=== PATIENT | male | born 1930 | race Hispanic/Latino ===

== ENCOUNTER 2020-10-29 15:13 | Inpatient (IN) | payer MEDICARE ==
[~2020-10-29] VITALS: Ht 182.9 cm; Wt 95.3 kg
[2020-10-29] MEDS ORDERED: CEFTRIAXONE 1G VIAL ONE (16:16)
[2020-10-29] MEDS ORDERED: DEXAMETHASONE SOD PHOSPHATE 10MG/ML 1ML VIAL ONE (16:16)
[2020-10-29] MEDS ORDERED: ALBUTEROL INHALER 90MCG/INH IH ONE (16:16)
[2020-10-29] MEDS ORDERED: 0.9%NACL 50ML 50 ML IV ONE (16:17)
[2020-10-29 16:28] LABS: BASOPHILS % (AUTO) 0.3 % (0.0-5.0); HEMATOCRIT 36.1 % (42-54); LYMPHOCYTES % (AUTO) 10.9 % (21.0-51.0); MEAN CORPUSCULAR HEMOGLOBIN 29.4 pg (27.0-33.0); MEAN CORPUSCULAR HGB CONC 32.7 g/dL (32.0-36.0); MEAN CORPUSCULAR VOLUME 89.8 fL (79-99); MONOCYTES % (AUTO) 7.6 % (3.0-13.0); NEUTROPHILS % (AUTO) 80.7 % (40.0-77.0); PLATELET COUNT (AUTO) 179 K/uL (130-400); RED BLOOD CELL COUNT(AUTO) 4.02 MIL/uL (4.50-6.20); RED CELL DISTRIBUTION WIDTH 13.7 % (11.0-15.5); WHITE BLOOD COUNT (AUTO) 7.5 K/uL (4.8-10.8)
[2020-10-29 16:40] LABS: ABG BASE EXCESS -4.6 mmol/L (-2.0-3.0); ABG HCO3 18.3 mmol/L (21.0-28.0); ABG OXYGEN SATURATION 84.4 % (95.0-99.0); ABG PCO2 28 mmHg (35-48)
[2020-10-29 16:46] LABS: APPEARANCE,URINE Cloudy (CLEAR); BILIRUBIN,URINE Negative (NEGATIVE); COLOR,URINE Dark Yellow (YELLOW); GLUCOSE, URINE (UA) Negative (NEGATIVE); KETONES,URINE 15 mg/dL (NEGATIVE); LEUKOCYTE ESTERASE ,URINE Trace (NEGATIVE); NITRATE,URINE Negative (NEGATIVE); OCCULT BLOOD,URINE Trace (NEGATIVE); PROTEIN,URINE POS 2+ mg/dL (NEGATIVE)
[2020-10-29 16:58] LABS: B-TYPE NATRIURETIC PEPTIDE 358 pg/mL (0-100)
[2020-10-29 17:18] LABS: CREATININE 1.3 mg/dL (0.5-1.5); POTASSIUM 4.1 mmol/L (3.5-5.1)
[2020-10-29 17:23] LABS: ALBUMIN 3.2 g/dL (3.5-5.0); BILIRUBIN,TOTAL 0.6 mg/dL (0.2-1.0); TOTAL PROTEIN, SERUM 7.9 g/dL (6.0-8.3)
[2020-10-29 17:26] LABS: RBC,URINE None Seen /HPF (0-1)
[2020-10-29 17:27] LABS: BACTERIA,URINE Few /HPF (None Seen); COARSE GRANULAR CASTS,URINE 0-2 /LPF (None Seen); SQUAMOUS EPITHELIAL CELL,UR 0-2 /HPF (0-2); WBC,URINE 0-1 /HPF (0-1)
[2020-10-29] MEDS ORDERED: AZITHROMYCIN 500MG+NS 250ML 250 ML IV ONE (18:13)
[2020-10-29] MEDS ORDERED: ONDANSETRON 4MG INJ IV PRN (18:30)
[2020-10-29] MEDS ORDERED: DOXYCYCLINE 100MG+NS 250ML IV SCH (18:30)
[2020-10-29] MEDS ORDERED: GUAIFENESIN-DM 200/20 MG 10 ML PO PRN (18:30)
[2020-10-29] MEDS: DEXAMETHASONE SOD PHOSPHATE 4 MG/ML 1ML VIAL IVP SCH (18:30)
[2020-10-29] MEDS ORDERED: ACETAMINOPHEN 325 MG TAB PO PRN ×2 (18:30)
[2020-10-29] MEDS ORDERED: ERGOCALCIFEROL (VITAMIN D2) 50,000 UNIT CAPSULE PO ONE (18:30)
[2020-10-29] MEDS: CEFTRIAXONE 1G VIAL IVP SCH (18:30)
[2020-10-29] MEDS ORDERED: PHARMACY COMMUNICATION MISC SCH (19:30)
[2020-10-29] MEDS: ACETYLCYSTEINE 600 MG CAPSULE PO SCH (21:00)
[2020-10-29] MEDS: DOXYCYCLINE 100MG+NS 250ML 250 ML IV SCH (21:00)
[2020-10-29] MEDS ORDERED: ACETYLCYSTEINE 600 MG CAPSULE ONE (21:53)
[2020-10-29] MEDS ORDERED: DOXYCYCLINE 100MG+NS 250ML 250 ML IV ONE (21:53)
[2020-10-29] MEDS ORDERED: ERGOCALCIFEROL (VITAMIN D2) 50,000 UNIT CAPSULE ONE (21:53)
[2020-10-30] MEDS ORDERED: GUAIFENESIN-DM 200/20 MG 10 ML ONE (04:33)
[2020-10-30] MEDS ORDERED: CEFTRIAXONE 1G VIAL ONE (04:45)
[2020-10-30 05:18] LABS: HEMATOCRIT 32.8 % (42-54); LYMPHOCYTES % (AUTO) 7.6 % (21.0-51.0); MEAN CORPUSCULAR HEMOGLOBIN 29.8 pg (27.0-33.0); MEAN CORPUSCULAR HGB CONC 33.8 g/dL (32.0-36.0); MEAN CORPUSCULAR VOLUME 88.2 fL (79-99); MONOCYTES % (AUTO) 2.4 % (3.0-13.0); NEUTROPHILS % (AUTO) 89.3 % (40.0-77.0); PLATELET COUNT (AUTO) 196 K/uL (130-400); RED BLOOD CELL COUNT(AUTO) 3.72 MIL/uL (4.50-6.20); RED CELL DISTRIBUTION WIDTH 13.6 % (11.0-15.5); WHITE BLOOD COUNT (AUTO) 5.4 K/uL (4.8-10.8)
[2020-10-30 05:59] LABS: ALBUMIN 2.7 g/dL (3.5-5.0); BILIRUBIN,TOTAL 0.4 mg/dL (0.2-1.0); CREATININE 1.1 mg/dL (0.5-1.5); TOTAL PROTEIN, SERUM 7.1 g/dL (6.0-8.3)
[2020-10-30 06:09] LABS: POTASSIUM 3.9 mmol/L (3.5-5.1)
[2020-10-30] MEDS: CEFTRIAXONE 1G VIAL IVP SCH ×2 (06:30→18:43)
[2020-10-30] MEDS ORDERED: ASCORBIC ACID 500 MG TAB ONE (08:22)
[2020-10-30] MEDS ORDERED: FAMOTIDINE 20MG VIAL IV ONE (08:23)
[2020-10-30] MEDS ORDERED: ACETYLCYSTEINE 600 MG CAPSULE ONE (08:23)
[2020-10-30] MEDS ORDERED: ENOXAPARIN SODIUM 30 MG/0.3 ML SQ ONE (08:23)
[2020-10-30] MEDS ORDERED: DOXYCYCLINE 100MG+NS 250ML 250 ML IV ONE (08:23)
[2020-10-30] MEDS ORDERED: ZINC SULFATE 220 CAPSULE ONE (08:23)
[2020-10-30] MEDS: ASCORBIC ACID 500 MG TAB PO SCH (09:00)
[2020-10-30] MEDS ORDERED: ENOXAPARIN SODIUM 30 MG/0.3 ML SQ SCH ×2 (09:00→10:15)
[2020-10-30] MEDS: ACETYLCYSTEINE 600 MG CAPSULE PO SCH ×2 (09:00→20:16)
[2020-10-30] MEDS ORDERED: FAMOTIDINE 20MG VIAL IV SCH (09:00)
[2020-10-30] MEDS: DOXYCYCLINE 100MG+NS 250ML 250 ML IV SCH ×2 (09:00→20:51)
[2020-10-30] MEDS: ZINC SULFATE 220 CAPSULE PO SCH (09:00)
[2020-10-30] MEDS ORDERED: PHARMACY COMMUNICATION MISC SCH (10:15)
[2020-10-30] MEDS ORDERED: FINA5TAB41 PO (10:54)
[2020-10-30] MEDS ORDERED: BRIN8DRO OP (10:54)
[2020-10-30] MEDS ORDERED: TIMO1DRO2 OP (10:54)
[2020-10-30] MEDS ORDERED: SIMV-46 PO (10:54)
[2020-10-30] MEDS ORDERED: LATA7.5D OP (10:54)
[2020-10-30] MEDS ORDERED: CYCL30DR OP (10:54)
[2020-10-30] MEDS ORDERED: TAMS-1 PO (10:54)
[2020-10-30] MEDS ORDERED: CALC60CR5 TP (10:54)
[2020-10-30] MEDS ORDERED: REMDESIVIR (EUA) 520 200 MG in 0.9% NACL 250ML 250 ML IV ONE (14:00)
[2020-10-30] MEDS ORDERED: COMPOUND IV REFRIGERATED 1 EACH IVSOLN MISC PRN (14:00)
[2020-10-30] MEDS ORDERED: POTASSIUM CHLORIDE 20MEQ/100ML 100 ML IV PRN (15:00)
[2020-10-30] MEDS ORDERED: POTASSIUM CHLORIDE 10% ELIXIR 20 MEQ/15 ML UDCUP PO PRN (15:00)
[2020-10-30] MEDS ORDERED: LIDOCAINE HCL-MPF 1% 2ML VIAL IV PRN (15:00)
[2020-10-30] MEDS ORDERED: PROMETHAZINE HCL 25 MG/ML 1ML AMPULE IM PRN (15:30)
[2020-10-30] MEDS ORDERED: KETOROLAC 30MG VIAL (30MG/ML) IVP PRN (15:30)
[2020-10-30] MEDS ORDERED: FENTANYL CITRATE PF 50 MCG/1 ML 2ML VIAL IVP PRN (15:30)
[2020-10-30] MEDS ORDERED: METOCLOPRAMIDE 10 MG/2 ML VIAL IVP PRN (15:30)
[2020-10-30] MEDS ORDERED: NITROGLYCERIN 50MG/D5W 250ML 1 BOT IV PRN (15:30)
[2020-10-30] MEDS ORDERED: NALOXONE HCL 0.4 MG/1 ML ML IVP PRN (15:30)
[2020-10-30] MEDS ORDERED: MORPHINE 5 MG/ML VIAL (5MG OR GREATER DOSE) IVP PRN (15:30)
[2020-10-30] MEDS ORDERED: ONDANSETRON 4MG INJ IVP PRN (15:30)
[2020-10-30 17:58] VITALS: BP 132/92
[2020-10-30] MEDS: DEXAMETHASONE SOD PHOSPHATE 4 MG/ML 1ML VIAL IVP SCH (18:42)
[2020-10-30 19:58] VITALS: BP 170/85
[2020-10-30 20:10] VITALS: BP 146/69
[2020-10-30] MEDS: ENOXAPARIN SODIUM 80 MG/0.8 ML SQ SCH (20:16)
[2020-10-30] MEDS: FAMOTIDINE 20MG VIAL IV SCH ×2 (20:16→20:22)
[2020-10-30] MEDS ORDERED: 0.9% NACL 250ML 250 ML IV ONE (20:46)
[2020-10-30 23:51] VITALS: BP 114/52
[2020-10-31] VITALS (7 sets, daily range): BP systolic 106–140; BP diastolic 41–83
[2020-10-31 03:28] LABS: ABG BASE EXCESS -5.4 mmol/L (-2.0-3.0); ABG HCO3 18.5 mmol/L (21.0-28.0); ABG OXYGEN SATURATION 87.5 % (95.0-99.0); ABG PCO2 31 mmHg (35-48)
[2020-10-31] MEDS: PHARMACY COMMUNICATION MISC SCH (06:00)
[2020-10-31] MEDS: CEFTRIAXONE 1G VIAL IVP SCH ×2 (06:01→18:02)
[2020-10-31 06:42] LABS: BASOPHILS % (AUTO) 0.1 % (0.0-5.0); LYMPHOCYTES % (AUTO) 2.4 % (21.0-51.0); MEAN CORPUSCULAR HEMOGLOBIN 29.2 pg (27.0-33.0); MEAN CORPUSCULAR HGB CONC 33.3 g/dL (32.0-36.0); MEAN CORPUSCULAR VOLUME 87.7 fL (79-99); NEUTROPHILS % (AUTO) 92.3 % (40.0-77.0); PLATELET COUNT (AUTO) 237 K/uL (130-400); RED BLOOD CELL COUNT(AUTO) 3.42 MIL/uL (4.50-6.20); RED CELL DISTRIBUTION WIDTH 13.8 % (11.0-15.5); WHITE BLOOD COUNT (AUTO) 14.7 K/uL (4.8-10.8)
[2020-10-31 07:26] LABS: ALBUMIN 2.4 g/dL (3.5-5.0); BILIRUBIN,TOTAL 0.3 mg/dL (0.2-1.0); POTASSIUM 3.9 mmol/L (3.5-5.1); TOTAL PROTEIN, SERUM 6.4 g/dL (6.0-8.3)
[2020-10-31 07:39] LABS: CRP QUANTITATIVE 250.4 mg/L (0.00-9.0)
[2020-10-31] MEDS: FAMOTIDINE 20MG VIAL IV SCH ×2 (09:16→20:34)
[2020-10-31] MEDS: ASCORBIC ACID 500 MG TAB PO SCH (09:16)
[2020-10-31] MEDS: ACETYLCYSTEINE 600 MG CAPSULE PO SCH ×2 (09:16→20:34)
[2020-10-31] MEDS: ZINC SULFATE 220 CAPSULE PO SCH (09:16)
[2020-10-31] MEDS: ENOXAPARIN SODIUM 80 MG/0.8 ML SQ SCH ×2 (09:17→20:35)
[2020-10-31] MEDS: DOXYCYCLINE 100MG+NS 250ML 250 ML IV SCH ×2 (10:27→20:35)
[2020-10-31] MEDS: REMDESIVIR (EUA) 520 100 MG in 0.9% NACL 250ML 250 ML IV SCH (14:43)
[2020-10-31] MEDS: DEXAMETHASONE SOD PHOSPHATE 4 MG/ML 1ML VIAL IVP SCH (18:02)
[2020-11-01 04:03] VITALS: BP 110/60
[2020-11-01] MEDS: CEFTRIAXONE 1G VIAL IVP SCH ×2 (05:24→18:29)
[2020-11-01] MEDS: PHARMACY COMMUNICATION MISC SCH (06:00)
[2020-11-01 06:25] LABS: BASOPHILS % (AUTO) 0.2 % (0.0-5.0); LYMPHOCYTES % (AUTO) 2.2 % (21.0-51.0); MEAN CORPUSCULAR HEMOGLOBIN 29.5 pg (27.0-33.0); MEAN CORPUSCULAR HGB CONC 33.3 g/dL (32.0-36.0); MEAN CORPUSCULAR VOLUME 88.5 fL (79-99); MONOCYTES % (AUTO) 3.5 % (3.0-13.0); PLATELET COUNT (AUTO) 291 K/uL (130-400); RED BLOOD CELL COUNT(AUTO) 3.73 MIL/uL (4.50-6.20); RED CELL DISTRIBUTION WIDTH 14.1 % (11.0-15.5); WHITE BLOOD COUNT (AUTO) 14.3 K/uL (4.8-10.8)
[2020-11-01 06:34] LABS: ALBUMIN 2.5 g/dL (3.5-5.0); BILIRUBIN,TOTAL 0.5 mg/dL (0.2-1.0); CREATININE 1.1 mg/dL (0.5-1.5); CRP QUANTITATIVE 260.7 mg/L (0.00-9.0); POTASSIUM 4.3 mmol/L (3.5-5.1); TOTAL PROTEIN, SERUM 6.6 g/dL (6.0-8.3)
[2020-11-01 07:31] VITALS: BP 132/71
[2020-11-01] MEDS: FAMOTIDINE 20MG VIAL IV SCH ×2 (08:50→20:27)
[2020-11-01] MEDS: ZINC SULFATE 220 CAPSULE PO SCH (08:50)
[2020-11-01] MEDS: ACETYLCYSTEINE 600 MG CAPSULE PO SCH ×2 (08:51→20:25)
[2020-11-01] MEDS: ASCORBIC ACID 500 MG TAB PO SCH (08:51)
[2020-11-01] MEDS: DOXYCYCLINE 100MG+NS 250ML 250 ML IV SCH ×2 (08:51→20:25)
[2020-11-01] MEDS: ENOXAPARIN SODIUM 80 MG/0.8 ML SQ SCH ×2 (08:52→20:26)
[2020-11-01 10:31] VITALS: BP 131/75
[2020-11-01] MEDS ORDERED: ALBUTEROL INHALER 90MCG/INH IH PRN (11:15)
[2020-11-01 15:49] VITALS: BP 135/77
[2020-11-01] MEDS: REMDESIVIR (EUA) 520 100 MG in 0.9% NACL 250ML 250 ML IV SCH (16:51)
[2020-11-01] MEDS: DEXAMETHASONE SOD PHOSPHATE 4 MG/ML 1ML VIAL IVP SCH (18:29)
[2020-11-01 20:00] VITALS: BP 136/73
[2020-11-02] VITALS (7 sets, daily range): BP systolic 138–168; BP diastolic 58–97
[2020-11-02 05:40] LABS: BASOPHILS % (AUTO) 0.1 % (0.0-5.0); HEMATOCRIT 30.4 % (42-54); LYMPHOCYTES % (AUTO) 2.2 % (21.0-51.0); MEAN CORPUSCULAR HEMOGLOBIN 29.2 pg (27.0-33.0); MEAN CORPUSCULAR HGB CONC 32.9 g/dL (32.0-36.0); MEAN CORPUSCULAR VOLUME 88.9 fL (79-99); MONOCYTES % (AUTO) 3.2 % (3.0-13.0); PLATELET COUNT (AUTO) 265 K/uL (130-400); RED BLOOD CELL COUNT(AUTO) 3.42 MIL/uL (4.50-6.20); RED CELL DISTRIBUTION WIDTH 14.5 % (11.0-15.5); WHITE BLOOD COUNT (AUTO) 13.3 K/uL (4.8-10.8)
[2020-11-02 06:06] LABS: CRP QUANTITATIVE 167.8 mg/L (0.00-9.0); POTASSIUM 3.9 mmol/L (3.5-5.1)
[2020-11-02] MEDS: CEFTRIAXONE 1G VIAL IVP SCH ×2 (06:30→06:34)
[2020-11-02] MEDS: FAMOTIDINE 20MG VIAL IV SCH (08:08)
[2020-11-02] MEDS: ASCORBIC ACID 500 MG TAB PO SCH (08:08)
[2020-11-02] MEDS: ZINC SULFATE 220 CAPSULE PO SCH (08:08)
[2020-11-02] MEDS: ENOXAPARIN SODIUM 80 MG/0.8 ML SQ SCH (08:09)
[2020-11-02] MEDS: ACETYLCYSTEINE 600 MG CAPSULE PO SCH (08:34)
[2020-11-02] MEDS: DOXYCYCLINE 100MG+NS 250ML 250 ML IV SCH (08:34)
[2020-11-02 13:28] LABS: ALBUMIN 2.4 g/dL (3.5-5.0); BILIRUBIN,DIRECT 0.1 mg/dL (0.0-0.3); BILIRUBIN,TOTAL 0.4 mg/dL (0.2-1.0); TOTAL PROTEIN, SERUM 5.9 g/dL (6.0-8.3)
[2020-11-02] MEDS: REMDESIVIR (EUA) 520 100 MG in 0.9% NACL 250ML 250 ML IV SCH (15:05)
[2020-11-02] MEDS: DEXAMETHASONE SOD PHOSPHATE 4 MG/ML 1ML VIAL IVP SCH (18:49)
[2020-11-03 03:29] VITALS: BP 133/77
[2020-11-03 05:08] LABS: BASOPHILS % (AUTO) 0.2 % (0.0-5.0); HEMATOCRIT 31.9 % (42-54); LYMPHOCYTES % (AUTO) 2.6 % (21.0-51.0); MEAN CORPUSCULAR HEMOGLOBIN 29.4 pg (27.0-33.0); MEAN CORPUSCULAR HGB CONC 33.9 g/dL (32.0-36.0); MEAN CORPUSCULAR VOLUME 86.9 fL (79-99); MONOCYTES % (AUTO) 2.7 % (3.0-13.0); NEUTROPHILS % (AUTO) 93.4 % (40.0-77.0); PLATELET COUNT (AUTO) 301 K/uL (130-400); RED BLOOD CELL COUNT(AUTO) 3.67 MIL/uL (4.50-6.20); RED CELL DISTRIBUTION WIDTH 14.4 % (11.0-15.5)
[2020-11-03 05:21] LABS: CREATININE 0.9 mg/dL (0.5-1.5); MAGNESIUM 2.2 mg/dL (1.80-2.40); POTASSIUM 3.6 mmol/L (3.5-5.1)
[2020-11-03 08:00] VITALS: BP 139/78
[2020-11-03] MEDS: PANTOPRAZOLE 40 MG TAB DR PO SCH (11:10)
[2020-11-03] MEDS: ASCORBIC ACID 500 MG TAB PO SCH (11:10)
[2020-11-03] MEDS: ZINC SULFATE 220 CAPSULE PO SCH (11:10)
[2020-11-03] MEDS: ENOXAPARIN SODIUM 40 MG/0.4 ML SYRINGE SQ SCH (11:11)
[2020-11-03 12:00] VITALS: BP 165/92
[2020-11-03] MEDS: REMDESIVIR (EUA) 520 100 MG in 0.9% NACL 250ML 250 ML IV SCH (13:39)
[2020-11-03] MEDS: KCL 20 MEQ ERTAB PO PRN ×2 (13:39→17:56)
[2020-11-03 16:00] VITALS: BP 141/58
[2020-11-03] MEDS: DEXAMETHASONE SOD PHOSPHATE 4 MG/ML 1ML VIAL IVP SCH (17:56)
[2020-11-03 21:35] VITALS: BP 139/81
[2020-11-04] VITALS (26 sets, daily range): BP systolic 80–144; BP diastolic 48–83
[2020-11-04 05:03] LABS: BASOPHILS % (AUTO) 0.2 % (0.0-5.0); HEMATOCRIT 32.4 % (42-54); LYMPHOCYTES % (AUTO) 1.5 % (21.0-51.0); MEAN CORPUSCULAR HEMOGLOBIN 29.2 pg (27.0-33.0); MEAN CORPUSCULAR HGB CONC 33.6 g/dL (32.0-36.0); MEAN CORPUSCULAR VOLUME 86.9 fL (79-99); MONOCYTES % (AUTO) 2.3 % (3.0-13.0); NEUTROPHILS % (AUTO) 94.8 % (40.0-77.0); PLATELET COUNT (AUTO) 241 K/uL (130-400); RED BLOOD CELL COUNT(AUTO) 3.73 MIL/uL (4.50-6.20); RED CELL DISTRIBUTION WIDTH 14.5 % (11.0-15.5); WHITE BLOOD COUNT (AUTO) 11.8 K/uL (4.8-10.8)
[2020-11-04 05:17] LABS: MAGNESIUM 2.2 mg/dL (1.80-2.40); POTASSIUM 4.5 mmol/L (3.5-5.1)
[2020-11-04] MEDS: ENOXAPARIN SODIUM 40 MG/0.4 ML SYRINGE SQ SCH (10:42)
[2020-11-04] MEDS: ASCORBIC ACID 500 MG TAB PO SCH (10:42)
[2020-11-04] MEDS: PANTOPRAZOLE 40 MG TAB DR PO SCH (10:43)
[2020-11-04] MEDS: ZINC SULFATE 220 CAPSULE PO SCH (10:43)
[2020-11-04] MEDS ORDERED: AMLODIPINE 2.5 MG TAB PO SCH (11:30)
[2020-11-04] MEDS: AMLODIPINE 2.5 MG TAB PO SCH (11:39)
[2020-11-04] MEDS ORDERED: DEXTROSE 50%-WATER 50 ML DISP.SYRIN IV PRN (12:00)
[2020-11-04] MEDS ORDERED: GLUCAGON 1MG KIT 1 MG ML IM PRN (12:00)
[2020-11-04] MEDS ORDERED: INSULIN LISPRO 100 UNIT/ML 3ML SQ SCH (14:00)
[2020-11-04] MEDS ORDERED: PROPOFOL 500 MG/ 50ML VIAL IV PRN (15:00)
[2020-11-04] MEDS ORDERED: LACTATED RINGERS 1000ML 1,000 ML IV SCH (15:15)
[2020-11-04] MEDS ORDERED: FENTANYL 2500MCG+NS 250ML 250 ML IV STA (15:18)
[2020-11-04 16:04] LABS: ABG BASE EXCESS -18.8 mmol/L (-2.0-3.0); ABG HCO3 8.7 mmol/L (21.0-28.0); ABG OXYGEN SATURATION 99.3 % (95.0-99.0); ABG PCO2 26 mmHg (35-48)
[2020-11-04] MEDS ORDERED: SODIUM BICARB 50MEQ 50ML VIAL 50 ML ONE ×2 (16:18)
[2020-11-04] MEDS ORDERED: FENTANYL CITRATE PF 50 MCG/1 ML 2ML VIAL IVP SCH (16:45)
[2020-11-04 17:35] LABS: ABG BASE EXCESS -6.8 mmol/L (-2.0-3.0); ABG HCO3 16.8 mmol/L (21.0-28.0); ABG OXYGEN SATURATION 95.9 % (95.0-99.0); ABG PCO2 29 mmHg (35-48)
[2020-11-04 17:48] LABS: BASOPHILS % (AUTO) 0.3 % (0.0-5.0); CREATININE 1.2 mg/dL (0.5-1.5); HEMATOCRIT 31.7 % (42-54); LYMPHOCYTES % (AUTO) 1.5 % (21.0-51.0); MEAN CORPUSCULAR HEMOGLOBIN 29.4 pg (27.0-33.0); MEAN CORPUSCULAR HGB CONC 32.2 g/dL (32.0-36.0); MEAN CORPUSCULAR VOLUME 91.4 fL (79-99); MONOCYTES % (AUTO) 3.9 % (3.0-13.0); PLATELET COUNT (AUTO) 182 K/uL (130-400); RED BLOOD CELL COUNT(AUTO) 3.47 MIL/uL (4.50-6.20); RED CELL DISTRIBUTION WIDTH 14.9 % (11.0-15.5); WHITE BLOOD COUNT (AUTO) 19.5 K/uL (4.8-10.8)
[2020-11-04 17:51] LABS: MAGNESIUM 2.3 mg/dL (1.80-2.40); PHOSPHORUS 6.5 mg/dL (2.5-4.9)
[2020-11-04] MEDS: DEXAMETHASONE SOD PHOSPHATE 4 MG/ML 1ML VIAL IVP SCH (18:30)
[2020-11-04] MEDS: PROPOFOL 1000 MG/100 ML 100 ML IV SCH (20:32)
[2020-11-04] MEDS ORDERED: INSULIN GLARGINE 100 UNITS/ML 10 ML VIAL SQ SCH (21:00)
[2020-11-04] MEDS: ZOSYN 3.375GM+NS 50ML 50 ML IV SCH (23:15)
[2020-11-05] VITALS (82 sets, daily range): BP systolic 77–154; BP diastolic 40–82
[2020-11-05] MEDS: ENOXAPARIN SODIUM 80 MG/0.8 ML SQ SCH ×3 (00:33→21:46)
[2020-11-05] MEDS: PROPOFOL 1000 MG/100 ML 100 ML IV SCH ×2 (03:33→15:31)
[2020-11-05 04:01] LABS: ABG BASE EXCESS -4.3 mmol/L (-2.0-3.0); ABG HCO3 19.6 mmol/L (21.0-28.0); ABG PCO2 33 mmHg (35-48)
[2020-11-05 05:03] LABS: BASOPHILS % (AUTO) 0.2 % (0.0-5.0); HEMATOCRIT 31.2 % (42-54); LYMPHOCYTES % (AUTO) 1.6 % (21.0-51.0); MEAN CORPUSCULAR HEMOGLOBIN 28.8 pg (27.0-33.0); MEAN CORPUSCULAR HGB CONC 32.7 g/dL (32.0-36.0); MEAN CORPUSCULAR VOLUME 88.1 fL (79-99); MONOCYTES % (AUTO) 2.1 % (3.0-13.0); NEUTROPHILS % (AUTO) 94.2 % (40.0-77.0); PLATELET COUNT (AUTO) 190 K/uL (130-400); RED BLOOD CELL COUNT(AUTO) 3.54 MIL/uL (4.50-6.20); RED CELL DISTRIBUTION WIDTH 14.9 % (11.0-15.5); WHITE BLOOD COUNT (AUTO) 17.8 K/uL (4.8-10.8)
[2020-11-05 05:33] LABS: ALBUMIN 2.2 g/dL (3.5-5.0); BILIRUBIN,TOTAL 0.7 mg/dL (0.2-1.0); CREATININE 1.1 mg/dL (0.5-1.5); CRP QUANTITATIVE 167.6 mg/L (0.00-9.0); POTASSIUM 4.2 mmol/L (3.5-5.1); TOTAL PROTEIN, SERUM 5.5 g/dL (6.0-8.3)
[2020-11-05] MEDS: ZOSYN 3.375GM+NS 50ML 50 ML IV SCH ×4 (06:20→23:02)
[2020-11-05] MEDS: INSULIN HUMULIN R 100 UNIT/ML 3ML SQ SCH ×3 (07:30→16:30)
[2020-11-05] MEDS: AMLODIPINE 2.5 MG TAB PO SCH ×2 (07:35→21:47)
[2020-11-05] MEDS: ZINC SULFATE 220 CAPSULE PO SCH (08:16)
[2020-11-05] MEDS: ASCORBIC ACID 500 MG TAB PO SCH (08:16)
[2020-11-05] MEDS: PANTOPRAZOLE 40 MG/VIAL IVP SCH (08:19)
[2020-11-05] MEDS: DEXMEDETOMIDINE HCL 400 MCG in 0.9%NACL 100ML 100 ML IV SCH (12:20)
[2020-11-05] MEDS: ASPIRIN 81MG CHEW TAB NG SCH (16:35)
[2020-11-05] MEDS ORDERED: NOREPINEPHRIN 4MG/NS 250ML 250 ML IV SCH (17:15)
[2020-11-05] MEDS: SIMVASTATIN 20 MG TABLET NG SCH (21:47)
[2020-11-05] MEDS: DEXAMETHASONE SOD PHOSPHATE 4 MG/ML 1ML VIAL IVP SCH (21:47)
[2020-11-06] VITALS (50 sets, daily range): BP systolic 84–155; BP diastolic 40–94
[2020-11-06] MEDS: INSULIN HUMULIN R 100 UNIT/ML 3ML SQ SCH ×5 (01:13→16:04)
[2020-11-06 04:23] LABS: ABG BASE EXCESS -4.7 mmol/L (-2.0-3.0); ABG HCO3 18.7 mmol/L (21.0-28.0); ABG OXYGEN SATURATION 96.5 % (95.0-99.0); ABG PCO2 31 mmHg (35-48)
[2020-11-06 04:55] LABS: BASOPHILS % (AUTO) 0.1 % (0.0-5.0); HEMATOCRIT 29.2 % (42-54); LYMPHOCYTES % (AUTO) 3.1 % (21.0-51.0); MEAN CORPUSCULAR HEMOGLOBIN 29.1 pg (27.0-33.0); MEAN CORPUSCULAR HGB CONC 32.5 g/dL (32.0-36.0); MEAN CORPUSCULAR VOLUME 89.3 fL (79-99); MONOCYTES % (AUTO) 2.2 % (3.0-13.0); NEUTROPHILS % (AUTO) 93.4 % (40.0-77.0); PLATELET COUNT (AUTO) 133 K/uL (130-400); RED BLOOD CELL COUNT(AUTO) 3.27 MIL/uL (4.50-6.20); WHITE BLOOD COUNT (AUTO) 10.6 K/uL (4.8-10.8)
[2020-11-06 05:06] LABS: ALBUMIN 1.8 g/dL (3.5-5.0); BILIRUBIN,DIRECT 0.3 mg/dL (0.0-0.3); BILIRUBIN,TOTAL 0.5 mg/dL (0.2-1.0); CREATININE 1.3 mg/dL (0.5-1.5); CRP QUANTITATIVE 142.4 mg/L (0.00-9.0)
[2020-11-06] MEDS ORDERED: INSULIN GLARGINE 100 UNITS/ML 10 ML VIAL SQ SCH (08:15)
[2020-11-06] MEDS: ZOSYN 3.375GM+NS 50ML 50 ML IV SCH ×2 (08:21→14:45)
[2020-11-06] MEDS: ASPIRIN 81MG CHEW TAB NG SCH (08:40)
[2020-11-06] MEDS: DEXMEDETOMIDINE HCL 400 MCG in 0.9%NACL 100ML 100 ML IV SCH (08:40)
[2020-11-06] MEDS: DEXAMETHASONE SOD PHOSPHATE 4 MG/ML 1ML VIAL IVP SCH ×2 (08:40→21:48)
[2020-11-06] MEDS: ZINC SULFATE 220 CAPSULE PO SCH (08:40)
[2020-11-06] MEDS: PANTOPRAZOLE 40 MG/VIAL IVP SCH (08:40)
[2020-11-06] MEDS: ASCORBIC ACID 500 MG TAB PO SCH (08:41)
[2020-11-06] MEDS: AMLODIPINE 2.5 MG TAB PO SCH ×2 (08:42→21:48)
[2020-11-06] MEDS: ENOXAPARIN SODIUM 80 MG/0.8 ML SQ SCH (08:42)
[2020-11-06 10:14] LABS: INR 1.21 (0.85-1.15); PROTHROMBIN TIME 12.7 SEC (9.6-11.6)
[2020-11-06 10:15] LABS: PARTIAL THROMBOPLASTIN TIME 36.5 SEC (26.3-35.5)
[2020-11-06] MEDS: PROPOFOL 1000 MG/100 ML 100 ML IV SCH ×2 (12:16→18:31)
[2020-11-06] MEDS: SENNOSIDES 8.6 MG TABLET NG SCH (13:48)
[2020-11-06] MEDS: POLYETHYLENE GLYCOL 3350 17 GM POWD.PACK NG SCH (13:48)
[2020-11-06] MEDS: DOCUSATE NA 100MG/10ML UDCUP NG SCH (13:48)
[2020-11-06] MEDS ORDERED: LACTATED RINGERS 1000ML 1,000 ML IV ONE ×2 (17:16→19:32)
[2020-11-06] MEDS: ENOXAPARIN SODIUM 40 MG/0.4 ML SYRINGE SQ SCH (20:17)
[2020-11-06] MEDS: SIMVASTATIN 20 MG TABLET NG SCH (21:48)
[2020-11-06 22:33] LABS: BASOPHILS % (AUTO) 0.1 % (0.0-5.0); HEMATOCRIT 28.3 % (42-54); LYMPHOCYTES % (AUTO) 1.1 % (21.0-51.0); MEAN CORPUSCULAR HEMOGLOBIN 29.3 pg (27.0-33.0); MEAN CORPUSCULAR HGB CONC 32.9 g/dL (32.0-36.0); MEAN CORPUSCULAR VOLUME 89.3 fL (79-99); MONOCYTES % (AUTO) 2.1 % (3.0-13.0); NEUTROPHILS % (AUTO) 95.3 % (40.0-77.0); PLATELET COUNT (AUTO) 127 K/uL (130-400); RED BLOOD CELL COUNT(AUTO) 3.17 MIL/uL (4.50-6.20); RED CELL DISTRIBUTION WIDTH 14.6 % (11.0-15.5); WHITE BLOOD COUNT (AUTO) 11.8 K/uL (4.8-10.8)
[2020-11-06] MEDS: LATANOPROST 2.5 ML DROPS OP SCH (22:51)
[2020-11-06] MEDS: BRINZOLAMIDE OP SCH (22:53)
[2020-11-06] MEDS: BRIMONID TART OP SCH (22:53)
[2020-11-07] VITALS (29 sets, daily range): BP systolic 81–142; BP diastolic 46–74
[2020-11-07] MEDS: ZOSYN 3.375GM+NS 50ML 50 ML IV SCH ×4 (00:48→21:04)
[2020-11-07] MEDS: PROPOFOL 1000 MG/100 ML 100 ML IV SCH ×4 (01:05→15:54)
[2020-11-07 04:12] LABS: ABG BASE EXCESS -4.5 mmol/L (-2.0-3.0); ABG HCO3 18.4 mmol/L (21.0-28.0); ABG OXYGEN SATURATION 95.8 % (95.0-99.0); ABG PCO2 29 mmHg (35-48)
[2020-11-07 05:42] LABS: HEMATOCRIT 27.9 % (42-54); MEAN CORPUSCULAR HEMOGLOBIN 29.1 pg (27.0-33.0); MEAN CORPUSCULAR VOLUME 88.3 fL (79-99); RED BLOOD CELL COUNT(AUTO) 3.16 MIL/uL (4.50-6.20); RED CELL DISTRIBUTION WIDTH 14.8 % (11.0-15.5); WHITE BLOOD COUNT (AUTO) 15.7 K/uL (4.8-10.8)
[2020-11-07 06:28] LABS: ALBUMIN 1.8 g/dL (3.5-5.0); BILIRUBIN,DIRECT 0.2 mg/dL (0.0-0.3); BILIRUBIN,TOTAL 0.5 mg/dL (0.2-1.0); CRP QUANTITATIVE 82.8 mg/L (0.00-9.0); POTASSIUM 4.4 mmol/L (3.5-5.1); TOTAL PROTEIN, SERUM 4.9 g/dL (6.0-8.3)
[2020-11-07] MEDS: INSULIN HUMULIN R 100 UNIT/ML 3ML SQ SCH ×4 (06:52→22:40)
[2020-11-07] MEDS: PANTOPRAZOLE 40 MG/VIAL IVP SCH (07:53)
[2020-11-07] MEDS: TAMSULOSIN HCL 0.4 MG CAP.ER.24H NG SCH (07:53)
[2020-11-07] MEDS: DEXAMETHASONE SOD PHOSPHATE 4 MG/ML 1ML VIAL IVP SCH ×2 (07:53→21:04)
[2020-11-07] MEDS: DOCUSATE NA 100MG/10ML UDCUP NG SCH (07:53)
[2020-11-07] MEDS: SENNOSIDES 8.6 MG TABLET NG SCH (07:54)
[2020-11-07] MEDS: ASCORBIC ACID 500 MG TAB PO SCH (07:54)
[2020-11-07] MEDS: FINASTERIDE 5 MG TABLET NG SCH (07:54)
[2020-11-07] MEDS: ZINC SULFATE 220 CAPSULE PO SCH (07:54)
[2020-11-07] MEDS: ASPIRIN 81MG CHEW TAB NG SCH (07:55)
[2020-11-07] MEDS: ENOXAPARIN SODIUM 40 MG/0.4 ML SYRINGE SQ SCH ×2 (07:56→21:05)
[2020-11-07] MEDS: AMLODIPINE 2.5 MG TAB PO SCH ×2 (07:56→21:04)
[2020-11-07] MEDS: BRINZOLAMIDE OP SCH ×2 (08:37→21:00)
[2020-11-07] MEDS: TIMOLOL MALEATE 0.5% 5 ML BOTTLE OP SCH (08:37)
[2020-11-07] MEDS: BRIMONID TART OP SCH ×2 (08:37→21:00)
[2020-11-07] MEDS: **HM**(Cyclosporine (Restasis) 1 EACH) OP SCH (08:37)
[2020-11-07] MEDS ORDERED: TAMSULOSIN HCL 0.4 MG CAP.ER.24H PO SCH (09:00)
[2020-11-07] MEDS ORDERED: FINASTERIDE 5 MG TABLET PO SCH (09:00)
[2020-11-07] MEDS ORDERED: LACTATED RINGERS 1000ML 1,000 ML IV SCH (09:15)
[2020-11-07] MEDS: POLYETHYLENE GLYCOL 3350 17 GM POWD.PACK NG SCH (12:05)
[2020-11-07] MEDS ORDERED: VECURONIUM 10MG/10ML IV PRN (16:48)
[2020-11-07] MEDS: ALBUTEROL 0.083% 2.5 MG/3 ML INH IH SCH ×2 (18:38→23:16)
[2020-11-07] MEDS: SODIUM CHLORIDE 3% FOR INHALATION 4 ML/AMP VIAL.NEB IH SCH ×2 (18:38→23:17)
[2020-11-07] MEDS: SIMVASTATIN 20 MG TABLET NG SCH (21:04)
[2020-11-07] MEDS: LATANOPROST 2.5 ML DROPS OP SCH (21:05)
[2020-11-07] MEDS: FENTANYL 2500MCG+NS 250ML 250 ML IV SCH (22:14)
[2020-11-08] VITALS (42 sets, daily range): BP systolic 85–136; BP diastolic 50–79
[2020-11-08] MEDS: DEXMEDETOMIDINE HCL 400 MCG in 0.9%NACL 100ML 100 ML IV SCH (00:12)
[2020-11-08] MEDS: PROPOFOL 1000 MG/100 ML 100 ML IV SCH ×6 (01:34→21:24)
[2020-11-08 03:58] LABS: ABG BASE EXCESS -4.3 mmol/L (-2.0-3.0); ABG HCO3 19.7 mmol/L (21.0-28.0); ABG OXYGEN SATURATION 96.1 % (95.0-99.0); ABG PCO2 34 mmHg (35-48)
[2020-11-08 05:26] LABS: BASOPHILS % (AUTO) 0.2 % (0.0-5.0); HEMATOCRIT 25.3 % (42-54); LYMPHOCYTES % (AUTO) 1.5 % (21.0-51.0); MEAN CORPUSCULAR HEMOGLOBIN 30.1 pg (27.0-33.0); MEAN CORPUSCULAR HGB CONC 33.6 g/dL (32.0-36.0); MEAN CORPUSCULAR VOLUME 89.7 fL (79-99); MONOCYTES % (AUTO) 2.5 % (3.0-13.0); NEUTROPHILS % (AUTO) 92.6 % (40.0-77.0); PLATELET COUNT (AUTO) 151 K/uL (130-400); RED BLOOD CELL COUNT(AUTO) 2.82 MIL/uL (4.50-6.20); RED CELL DISTRIBUTION WIDTH 14.8 % (11.0-15.5); WHITE BLOOD COUNT (AUTO) 17.4 K/uL (4.8-10.8)
[2020-11-08] MEDS: SODIUM CHLORIDE 3% FOR INHALATION 4 ML/AMP VIAL.NEB IH SCH ×2 (05:56→13:49)
[2020-11-08 06:09] LABS: ALBUMIN 1.8 g/dL (3.5-5.0); BILIRUBIN,DIRECT 0.2 mg/dL (0.0-0.3); BILIRUBIN,TOTAL 0.4 mg/dL (0.2-1.0); CREATININE 1.1 mg/dL (0.5-1.5); CRP QUANTITATIVE 53.8 mg/L (0.00-9.0); POTASSIUM 4.3 mmol/L (3.5-5.1); TOTAL PROTEIN, SERUM 4.8 g/dL (6.0-8.3)
[2020-11-08] MEDS: ALBUTEROL 0.083% 2.5 MG/3 ML INH IH SCH ×2 (06:09→13:48)
[2020-11-08] MEDS: ZOSYN 3.375GM+NS 50ML 50 ML IV SCH ×3 (06:10→22:07)
[2020-11-08] MEDS: AMLODIPINE 2.5 MG TAB PO SCH ×2 (08:02→21:00)
[2020-11-08] MEDS: TAMSULOSIN HCL 0.4 MG CAP.ER.24H NG SCH (08:03)
[2020-11-08] MEDS: DEXAMETHASONE SOD PHOSPHATE 4 MG/ML 1ML VIAL IVP SCH ×2 (08:13→21:22)
[2020-11-08] MEDS: ZINC SULFATE 220 CAPSULE PO SCH (08:13)
[2020-11-08] MEDS: ASPIRIN 81MG CHEW TAB NG SCH (08:13)
[2020-11-08] MEDS: SENNOSIDES 8.6 MG TABLET NG SCH (08:13)
[2020-11-08] MEDS: FINASTERIDE 5 MG TABLET NG SCH (08:13)
[2020-11-08] MEDS: ASCORBIC ACID 500 MG TAB PO SCH (08:13)
[2020-11-08] MEDS: ENOXAPARIN SODIUM 40 MG/0.4 ML SYRINGE SQ SCH (08:14)
[2020-11-08] MEDS: INSULIN HUMULIN R 100 UNIT/ML 3ML SQ SCH ×4 (08:15→21:27)
[2020-11-08] MEDS: PANTOPRAZOLE 40 MG/VIAL IVP SCH ×3 (08:17→21:23)
[2020-11-08] MEDS: DOCUSATE NA 100MG/10ML UDCUP NG SCH (08:17)
[2020-11-08] MEDS: NOREPINEPHRIN 4MG/NS 250ML 250 ML IV SCH (08:19)
[2020-11-08] MEDS: TIMOLOL MALEATE 0.5% 5 ML BOTTLE OP SCH (08:22)
[2020-11-08] MEDS: BRINZOLAMIDE OP SCH ×2 (08:39→21:00)
[2020-11-08] MEDS: BRIMONID TART OP SCH ×2 (08:39→21:00)
[2020-11-08] MEDS: **HM**(Cyclosporine (Restasis) 1 EACH) OP SCH (08:39)
[2020-11-08] MEDS: POLYETHYLENE GLYCOL 3350 17 GM POWD.PACK NG SCH (12:07)
[2020-11-08] MEDS: FENTANYL 2500MCG+NS 250ML 250 ML IV SCH (21:26)
[2020-11-08] MEDS: LATANOPROST 2.5 ML DROPS OP SCH (21:27)
[2020-11-08] MEDS: SIMVASTATIN 20 MG TABLET NG SCH (21:27)
[2020-11-09] VITALS (43 sets, daily range): BP systolic 87–163; BP diastolic 47–92
[2020-11-09] MEDS: PROPOFOL 1000 MG/100 ML 100 ML IV SCH ×5 (01:16→22:24)
[2020-11-09 05:57] LABS: BASOPHILS % (AUTO) 0.2 % (0.0-5.0); HEMATOCRIT 24.1 % (42-54); LYMPHOCYTES % (AUTO) 1.7 % (21.0-51.0); MEAN CORPUSCULAR HEMOGLOBIN 29.4 pg (27.0-33.0); MONOCYTES % (AUTO) 2.8 % (3.0-13.0); NEUTROPHILS % (AUTO) 91.3 % (40.0-77.0); NUCLEATED RED BLOOD CELLS 0.1 % (0.0-0.19); PLATELET COUNT (AUTO) 142 K/uL (130-400); RED BLOOD CELL COUNT(AUTO) 2.62 MIL/uL (4.50-6.20); RED CELL DISTRIBUTION WIDTH 14.9 % (11.0-15.5); WHITE BLOOD COUNT (AUTO) 17.9 K/uL (4.8-10.8)
[2020-11-09 06:10] LABS: CREATININE 0.9 mg/dL (0.5-1.5); CRP QUANTITATIVE 36.8 mg/L (0.00-9.0); POTASSIUM 4.5 mmol/L (3.5-5.1)
[2020-11-09] MEDS: ZOSYN 3.375GM+NS 50ML 50 ML IV SCH ×3 (07:13→22:21)
[2020-11-09] MEDS: ALBUTEROL 0.083% 2.5 MG/3 ML INH IH SCH ×4 (07:18→19:20)
[2020-11-09] MEDS: SODIUM CHLORIDE 3% FOR INHALATION 4 ML/AMP VIAL.NEB IH SCH ×3 (07:18→19:21)
[2020-11-09] MEDS: INSULIN HUMULIN R 100 UNIT/ML 3ML SQ SCH ×4 (07:27→21:00)
[2020-11-09] MEDS: DOCUSATE NA 100MG/10ML UDCUP NG SCH (08:36)
[2020-11-09] MEDS: ASPIRIN 81MG CHEW TAB NG SCH (08:36)
[2020-11-09] MEDS: ZINC SULFATE 220 CAPSULE PO SCH (08:37)
[2020-11-09] MEDS: PANTOPRAZOLE 40 MG/VIAL IVP SCH ×2 (08:37→22:21)
[2020-11-09] MEDS: DEXAMETHASONE SOD PHOSPHATE 4 MG/ML 1ML VIAL IVP SCH ×2 (08:37→22:21)
[2020-11-09] MEDS: TAMSULOSIN HCL 0.4 MG CAP.ER.24H NG SCH (08:37)
[2020-11-09] MEDS: SENNOSIDES 8.6 MG TABLET NG SCH (08:37)
[2020-11-09] MEDS: ASCORBIC ACID 500 MG TAB PO SCH (08:37)
[2020-11-09] MEDS: FINASTERIDE 5 MG TABLET NG SCH (08:37)
[2020-11-09] MEDS: TIMOLOL MALEATE 0.5% 5 ML BOTTLE OP SCH (08:40)
[2020-11-09] MEDS: BRIMONID TART OP SCH ×2 (08:41→21:00)
[2020-11-09] MEDS: BRINZOLAMIDE OP SCH ×2 (08:41→21:00)
[2020-11-09] MEDS: **HM**(Cyclosporine (Restasis) 1 EACH) OP SCH (08:43)
[2020-11-09] MEDS: AMLODIPINE 2.5 MG TAB PO SCH ×2 (09:00→20:30)
[2020-11-09] MEDS: POLYETHYLENE GLYCOL 3350 17 GM POWD.PACK NG SCH (12:50)
[2020-11-09] MEDS: NOREPINEPHRIN 4MG/NS 250ML 250 ML IV SCH (17:54)
[2020-11-09] MEDS: VECURONIUM 10MG/10ML 50 MG in 0.9%NACL 50ML 50 ML IV SCH (18:36)
[2020-11-09] MEDS: LATANOPROST 2.5 ML DROPS OP SCH (21:00)
[2020-11-09] MEDS: SIMVASTATIN 20 MG TABLET NG SCH (22:26)
[2020-11-10] VITALS (48 sets, daily range): BP systolic 75–152; BP diastolic 44–77
[2020-11-10] MEDS: SODIUM CHLORIDE 3% FOR INHALATION 4 ML/AMP VIAL.NEB IH SCH ×4 (01:16→18:14)
[2020-11-10] MEDS: ALBUTEROL 0.083% 2.5 MG/3 ML INH IH SCH ×4 (01:16→18:14)
[2020-11-10] MEDS ORDERED: FENTANYL 2500MCG+NS 250ML 250 ML IV ONE (01:57)
[2020-11-10 03:58] LABS: ABG BASE EXCESS -6.7 mmol/L (-2.0-3.0); ABG HCO3 18.4 mmol/L (21.0-28.0); ABG PCO2 36 mmHg (35-48)
[2020-11-10] MEDS: VECURONIUM 10MG/10ML 50 MG in 0.9%NACL 50ML 50 ML IV SCH (04:22)
[2020-11-10 05:12] LABS: BASOPHILS % (AUTO) 0.3 % (0.0-5.0); EOSINOPHILS % (AUTO) 0.1 % (0.0-8.0); HEMATOCRIT 24.6 % (42-54); LYMPHOCYTES % (AUTO) 1.3 % (21.0-51.0); MEAN CORPUSCULAR HEMOGLOBIN 28.7 pg (27.0-33.0); MEAN CORPUSCULAR HGB CONC 31.3 g/dL (32.0-36.0); MEAN CORPUSCULAR VOLUME 91.8 fL (79-99); MONOCYTES % (AUTO) 3.8 % (3.0-13.0); NEUTROPHILS % (AUTO) 89.8 % (40.0-77.0); NUCLEATED RED BLOOD CELLS 0.2 % (0.0-0.19); PLATELET COUNT (AUTO) 154 K/uL (130-400); RED BLOOD CELL COUNT(AUTO) 2.68 MIL/uL (4.50-6.20); RED CELL DISTRIBUTION WIDTH 15.2 % (11.0-15.5); WHITE BLOOD COUNT (AUTO) 26.3 K/uL (4.8-10.8)
[2020-11-10 05:37] LABS: ALBUMIN 1.8 g/dL (3.5-5.0); BILIRUBIN,TOTAL 0.5 mg/dL (0.2-1.0); CREATININE 1.2 mg/dL (0.5-1.5); CRP QUANTITATIVE 51.6 mg/L (0.00-9.0); POTASSIUM 5.2 mmol/L (3.5-5.1); TOTAL PROTEIN, SERUM 4.9 g/dL (6.0-8.3)
[2020-11-10] MEDS: PROPOFOL 1000 MG/100 ML 100 ML IV SCH ×4 (06:37→19:16)
[2020-11-10] MEDS: ZOSYN 3.375GM+NS 50ML 50 ML IV SCH ×2 (07:19→14:41)
[2020-11-10] MEDS: INSULIN HUMULIN R 100 UNIT/ML 3ML SQ SCH ×4 (07:24→21:00)
[2020-11-10] MEDS: FINASTERIDE 5 MG TABLET NG SCH (08:36)
[2020-11-10] MEDS: PANTOPRAZOLE 40 MG/VIAL IVP SCH ×2 (08:36→22:14)
[2020-11-10] MEDS: ZINC SULFATE 220 CAPSULE PO SCH (08:36)
[2020-11-10] MEDS: TAMSULOSIN HCL 0.4 MG CAP.ER.24H NG SCH (08:36)
[2020-11-10] MEDS: SENNOSIDES 8.6 MG TABLET NG SCH (08:36)
[2020-11-10] MEDS: ASPIRIN 81MG CHEW TAB NG SCH (08:36)
[2020-11-10] MEDS: DEXAMETHASONE SOD PHOSPHATE 4 MG/ML 1ML VIAL IVP SCH ×2 (08:37→22:14)
[2020-11-10] MEDS: DOCUSATE NA 100MG/10ML UDCUP NG SCH (08:37)
[2020-11-10] MEDS: ASCORBIC ACID 500 MG TAB PO SCH (08:37)
[2020-11-10] MEDS: BRINZOLAMIDE OP SCH ×2 (08:40→22:16)
[2020-11-10] MEDS: TIMOLOL MALEATE 0.5% 5 ML BOTTLE OP SCH (08:40)
[2020-11-10] MEDS: BRIMONID TART OP SCH ×2 (08:40→22:16)
[2020-11-10] MEDS: **HM**(Cyclosporine (Restasis) 1 EACH) OP SCH (08:55)
[2020-11-10] MEDS: AMLODIPINE 2.5 MG TAB PO SCH ×2 (08:55→21:00)
[2020-11-10] MEDS: POLYETHYLENE GLYCOL 3350 17 GM POWD.PACK NG SCH (12:22)
[2020-11-10] MEDS: NOREPINEPHRIN 4MG/NS 250ML 250 ML IV SCH (20:33)
[2020-11-10] MEDS: SIMVASTATIN 20 MG TABLET NG SCH (22:14)
[2020-11-10] MEDS: LATANOPROST 2.5 ML DROPS OP SCH (22:15)
[2020-11-11] VITALS (43 sets, daily range): BP systolic 75–163; BP diastolic 42–85
[2020-11-11] MEDS: PROPOFOL 1000 MG/100 ML 100 ML IV SCH ×6 (00:15→20:23)
[2020-11-11] MEDS: SODIUM CHLORIDE 3% FOR INHALATION 4 ML/AMP VIAL.NEB IH SCH ×4 (00:29→18:37)
[2020-11-11] MEDS: ALBUTEROL 0.083% 2.5 MG/3 ML INH IH SCH ×4 (00:29→18:37)
[2020-11-11] MEDS: ZOSYN 3.375GM+NS 50ML 50 ML IV SCH ×4 (01:07→23:38)
[2020-11-11 03:45] LABS: ABG BASE EXCESS -6.3 mmol/L (-2.0-3.0); ABG HCO3 18.7 mmol/L (21.0-28.0); ABG OXYGEN SATURATION 98.5 % (95.0-99.0); ABG PCO2 36 mmHg (35-48)
[2020-11-11] MEDS ORDERED: FENTANYL 2500MCG+NS 250ML 250 ML IV ONE ×2 (04:26→20:13)
[2020-11-11] MEDS: VECURONIUM 10MG/10ML 50 MG in 0.9%NACL 50ML 50 ML IV SCH (04:57)
[2020-11-11] MEDS: DEXMEDETOMIDINE HCL 400 MCG in 0.9%NACL 100ML 100 ML IV SCH ×2 (05:00→20:24)
[2020-11-11 05:02] LABS: BASOPHILS % (AUTO) 0.2 % (0.0-5.0); EOSINOPHILS % (AUTO) 0.1 % (0.0-8.0); LYMPHOCYTES % (AUTO) 1.1 % (21.0-51.0); MEAN CORPUSCULAR HEMOGLOBIN 28.8 pg (27.0-33.0); MEAN CORPUSCULAR HGB CONC 31.3 g/dL (32.0-36.0); MONOCYTES % (AUTO) 3.4 % (3.0-13.0); NEUTROPHILS % (AUTO) 91.1 % (40.0-77.0); NUCLEATED RED BLOOD CELLS 0.2 % (0.0-0.19); PLATELET COUNT (AUTO) 138 K/uL (130-400); RED CELL DISTRIBUTION WIDTH 15.2 % (11.0-15.5)
[2020-11-11] MEDS: INSULIN HUMULIN R 100 UNIT/ML 3ML SQ SCH ×4 (05:08→23:00)
[2020-11-11 05:20] LABS: CREATININE 1.1 mg/dL (0.5-1.5); CRP QUANTITATIVE 109.3 mg/L (0.00-9.0); POTASSIUM 5.1 mmol/L (3.5-5.1)
[2020-11-11] MEDS: ASPIRIN 81MG CHEW TAB NG SCH (08:44)
[2020-11-11] MEDS: FINASTERIDE 5 MG TABLET NG SCH (08:44)
[2020-11-11] MEDS: DOCUSATE NA 100MG/10ML UDCUP NG SCH (08:44)
[2020-11-11] MEDS: ZINC SULFATE 220 CAPSULE PO SCH (08:44)
[2020-11-11] MEDS: ASCORBIC ACID 500 MG TAB PO SCH (08:44)
[2020-11-11] MEDS: TAMSULOSIN HCL 0.4 MG CAP.ER.24H NG SCH (08:44)
[2020-11-11] MEDS: DEXAMETHASONE SOD PHOSPHATE 4 MG/ML 1ML VIAL IVP SCH ×2 (08:44→20:20)
[2020-11-11] MEDS: SENNOSIDES 8.6 MG TABLET NG SCH (08:44)
[2020-11-11] MEDS: TIMOLOL MALEATE 0.5% 5 ML BOTTLE OP SCH (08:45)
[2020-11-11] MEDS: PANTOPRAZOLE 40 MG/VIAL IVP SCH ×2 (08:47→20:20)
[2020-11-11] MEDS: AMLODIPINE 2.5 MG TAB PO SCH ×2 (09:00→21:00)
[2020-11-11] MEDS: BRIMONID TART OP SCH ×2 (09:00→21:00)
[2020-11-11] MEDS: **HM**(Cyclosporine (Restasis) 1 EACH) OP SCH (09:00)
[2020-11-11] MEDS: BRINZOLAMIDE OP SCH ×2 (09:00→21:00)
[2020-11-11 13:19] LABS: BASOPHILS % (AUTO) 0.2 % (0.0-5.0); EOSINOPHILS % (AUTO) 0.1 % (0.0-8.0); LYMPHOCYTES % (AUTO) 1.1 % (21.0-51.0); MEAN CORPUSCULAR HEMOGLOBIN 29.2 pg (27.0-33.0); MEAN CORPUSCULAR HGB CONC 31.7 g/dL (32.0-36.0); MEAN CORPUSCULAR VOLUME 92.3 fL (79-99); MONOCYTES % (AUTO) 3.5 % (3.0-13.0); NEUTROPHILS % (AUTO) 91.1 % (40.0-77.0); NUCLEATED RED BLOOD CELLS 0.2 % (0.0-0.19); PLATELET COUNT (AUTO) 148 K/uL (130-400); RED CELL DISTRIBUTION WIDTH 15.4 % (11.0-15.5)
[2020-11-11 13:36] LABS: WHITE BLOOD COUNT (AUTO) 32.9 K/uL (4.8-10.8)
[2020-11-11] MEDS: POLYETHYLENE GLYCOL 3350 17 GM POWD.PACK NG SCH (13:56)
[2020-11-11 14:39] LABS: BAND NEUTROPHILS % (MANUAL) 1 % (0-2); LYMPHOCYTES % (MANUAL) 1 % (22-44); MONOCYTES % (MANUAL) 1 % (2-9); SEGMENTED NEUTROPHILS % 97 % (40-70)
[2020-11-11 14:40] LABS: MAN.DIFF COMMENT-IMPRESSION MANUAL DIFFERENTIAL
[2020-11-11 14:41] LABS: PLATELET MORPHOLOGY COMMENT ADEQUATE
[2020-11-11] MEDS: SIMVASTATIN 20 MG TABLET NG SCH (20:21)
[2020-11-11] MEDS: INSULIN GLARGINE 100 UNITS/ML 10 ML VIAL SQ SCH (20:27)
[2020-11-11] MEDS: LATANOPROST 2.5 ML DROPS OP SCH (21:00)
[2020-11-12] VITALS (55 sets, daily range): BP systolic 85–166; BP diastolic 42–78
[2020-11-12] MEDS: SODIUM CHLORIDE 3% FOR INHALATION 4 ML/AMP VIAL.NEB IH SCH ×4 (01:06→18:38)
[2020-11-12] MEDS: ALBUTEROL 0.083% 2.5 MG/3 ML INH IH SCH ×4 (01:06→18:38)
[2020-11-12] MEDS: VANCOMYCIN 1G/250ML KIT 250 ML IV SCH ×3 (03:11→14:36)
[2020-11-12 03:55] LABS: ABG BASE EXCESS -8.1 mmol/L (-2.0-3.0); ABG HCO3 16.4 mmol/L (21.0-28.0); ABG OXYGEN SATURATION 93.7 % (95.0-99.0); ABG PCO2 31 mmHg (35-48)
[2020-11-12] MEDS: PROPOFOL 1000 MG/100 ML 100 ML IV SCH ×5 (04:42→21:19)
[2020-11-12] MEDS: ZOSYN 3.375GM+NS 50ML 50 ML IV SCH ×2 (07:43→15:19)
[2020-11-12] MEDS: INSULIN HUMULIN R 100 UNIT/ML 3ML SQ SCH ×4 (07:45→21:17)
[2020-11-12] MEDS: DOCUSATE NA 100MG/10ML UDCUP NG SCH (08:38)
[2020-11-12] MEDS: TAMSULOSIN HCL 0.4 MG CAP.ER.24H NG SCH (08:39)
[2020-11-12] MEDS: DEXAMETHASONE SOD PHOSPHATE 4 MG/ML 1ML VIAL IVP SCH ×2 (08:39→20:54)
[2020-11-12] MEDS: ZINC SULFATE 220 CAPSULE PO SCH (08:39)
[2020-11-12] MEDS: ASPIRIN 81MG CHEW TAB NG SCH (08:39)
[2020-11-12] MEDS: PANTOPRAZOLE 40 MG/VIAL IVP SCH ×2 (08:39→20:54)
[2020-11-12] MEDS: SENNOSIDES 8.6 MG TABLET NG SCH (08:39)
[2020-11-12] MEDS: FINASTERIDE 5 MG TABLET NG SCH (08:39)
[2020-11-12] MEDS: ASCORBIC ACID 500 MG TAB PO SCH (08:39)
[2020-11-12] MEDS: NOREPINEPHRIN 4MG/NS 250ML 250 ML IV SCH (08:42)
[2020-11-12] MEDS: BRINZOLAMIDE OP SCH ×2 (08:43→20:54)
[2020-11-12] MEDS: TIMOLOL MALEATE 0.5% 5 ML BOTTLE OP SCH (08:43)
[2020-11-12] MEDS: BRIMONID TART OP SCH ×2 (08:43→20:54)
[2020-11-12] MEDS: AMLODIPINE 2.5 MG TAB PO SCH ×2 (08:44→20:54)
[2020-11-12] MEDS: **HM**(Cyclosporine (Restasis) 1 EACH) OP SCH (08:44)
[2020-11-12] MEDS ORDERED: INSULIN GLARGINE 100 UNITS/ML 10 ML VIAL SQ SCH (09:45)
[2020-11-12 10:13] LABS: BASOPHILS % (AUTO) 0.1 % (0.0-5.0); EOSINOPHILS % (AUTO) 0.1 % (0.0-8.0); LYMPHOCYTES % (AUTO) 1.7 % (21.0-51.0); MEAN CORPUSCULAR HEMOGLOBIN 29.3 pg (27.0-33.0); MEAN CORPUSCULAR HGB CONC 31.3 g/dL (32.0-36.0); MEAN CORPUSCULAR VOLUME 93.5 fL (79-99); NEUTROPHILS % (AUTO) 90.8 % (40.0-77.0); NUCLEATED RED BLOOD CELLS 0.6 % (0.0-0.19); PLATELET COUNT (AUTO) 130 K/uL (130-400); RED BLOOD CELL COUNT(AUTO) 2.15 MIL/uL (4.50-6.20); WHITE BLOOD COUNT (AUTO) 23.1 K/uL (4.8-10.8)
[2020-11-12 10:49] LABS: HEMATOCRIT 20.1 % (42-54)
[2020-11-12] MEDS ORDERED: 0.9% NACL 250ML 250 ML IV ONE (12:38)
[2020-11-12] MEDS: SUCRALFATE 1 GM TABLET NG SCH ×3 (12:42→20:53)
[2020-11-12] MEDS: POLYETHYLENE GLYCOL 3350 17 GM POWD.PACK NG SCH (12:56)
[2020-11-12] MEDS: LATANOPROST 2.5 ML DROPS OP SCH (20:54)
[2020-11-12] MEDS: SIMVASTATIN 20 MG TABLET NG SCH (20:54)
[2020-11-12] MEDS: INSULIN GLARGINE 100 UNITS/ML 10 ML VIAL SQ SCH (21:18)
[2020-11-13] VITALS (74 sets, daily range): BP systolic 84–144; BP diastolic 39–69
[2020-11-13] MEDS: ZOSYN 3.375GM+NS 50ML 50 ML IV SCH ×3 (00:07→15:19)
[2020-11-13] MEDS: VECURONIUM 10MG/10ML 50 MG in 0.9%NACL 50ML 50 ML IV SCH ×2 (00:08→13:16)
[2020-11-13] MEDS: ALBUTEROL 0.083% 2.5 MG/3 ML INH IH SCH ×2 (00:20→18:15)
[2020-11-13] MEDS: SODIUM CHLORIDE 3% FOR INHALATION 4 ML/AMP VIAL.NEB IH SCH ×2 (00:20→18:15)
[2020-11-13 01:03] LABS: BASOPHILS % (AUTO) 0.2 % (0.0-5.0); HEMATOCRIT 25.6 % (42-54); LYMPHOCYTES % (AUTO) 1.4 % (21.0-51.0); MEAN CORPUSCULAR HEMOGLOBIN 30.1 pg (27.0-33.0); MEAN CORPUSCULAR HGB CONC 32.4 g/dL (32.0-36.0); MEAN CORPUSCULAR VOLUME 92.8 fL (79-99); MONOCYTES % (AUTO) 3.5 % (3.0-13.0); NEUTROPHILS % (AUTO) 90.5 % (40.0-77.0); NUCLEATED RED BLOOD CELLS 0.6 % (0.0-0.19); PLATELET COUNT (AUTO) 134 K/uL (130-400); RED BLOOD CELL COUNT(AUTO) 2.76 MIL/uL (4.50-6.20); RED CELL DISTRIBUTION WIDTH 15.6 % (11.0-15.5); WHITE BLOOD COUNT (AUTO) 24.5 K/uL (4.8-10.8)
[2020-11-13] MEDS ORDERED: FENTANYL 2500MCG+NS 250ML 250 ML IV ONE (02:06)
[2020-11-13] MEDS: PROPOFOL 1000 MG/100 ML 100 ML IV SCH ×6 (02:12→21:16)
[2020-11-13] MEDS: VANCOMYCIN 1G/250ML KIT 250 ML IV SCH ×2 (03:19→15:19)
[2020-11-13 03:47] LABS: ABG BASE EXCESS -9.7 mmol/L (-2.0-3.0); ABG HCO3 16.6 mmol/L (21.0-28.0); ABG OXYGEN SATURATION 92.8 % (95.0-99.0); ABG PCO2 38 mmHg (35-48)
[2020-11-13 04:55] LABS: BASOPHILS % (AUTO) 0.3 % (0.0-5.0); EOSINOPHILS % (AUTO) 0.2 % (0.0-8.0); HEMATOCRIT 26.2 % (42-54); LYMPHOCYTES % (AUTO) 1.3 % (21.0-51.0); MEAN CORPUSCULAR HEMOGLOBIN 29.5 pg (27.0-33.0); MEAN CORPUSCULAR HGB CONC 31.7 g/dL (32.0-36.0); MEAN CORPUSCULAR VOLUME 93.2 fL (79-99); MONOCYTES % (AUTO) 3.5 % (3.0-13.0); NEUTROPHILS % (AUTO) 89.9 % (40.0-77.0); NUCLEATED RED BLOOD CELLS 0.6 % (0.0-0.19); PLATELET COUNT (AUTO) 139 K/uL (130-400); RED BLOOD CELL COUNT(AUTO) 2.81 MIL/uL (4.50-6.20); RED CELL DISTRIBUTION WIDTH 15.9 % (11.0-15.5); WHITE BLOOD COUNT (AUTO) 24.7 K/uL (4.8-10.8)
[2020-11-13 05:16] LABS: ALBUMIN 1.5 g/dL (3.5-5.0); BILIRUBIN,TOTAL 0.5 mg/dL (0.2-1.0); CRP QUANTITATIVE 159.9 mg/L (0.00-9.0); POTASSIUM 5.8 mmol/L (3.5-5.1); TOTAL PROTEIN, SERUM 4.8 g/dL (6.0-8.3)
[2020-11-13] MEDS: INSULIN HUMULIN R 100 UNIT/ML 3ML SQ SCH ×4 (06:01→21:17)
[2020-11-13] MEDS: SUCRALFATE 1 GM TABLET NG SCH ×4 (06:01→21:10)
[2020-11-13] MEDS: TAMSULOSIN HCL 0.4 MG CAP.ER.24H NG SCH (08:45)
[2020-11-13] MEDS: ZINC SULFATE 220 CAPSULE PO SCH (08:45)
[2020-11-13] MEDS: ASPIRIN 81MG CHEW TAB NG SCH (08:46)
[2020-11-13] MEDS: PANTOPRAZOLE 40 MG/VIAL IVP SCH ×2 (08:46→21:11)
[2020-11-13] MEDS: DEXAMETHASONE SOD PHOSPHATE 4 MG/ML 1ML VIAL IVP SCH ×2 (08:46→21:12)
[2020-11-13] MEDS: FINASTERIDE 5 MG TABLET NG SCH (08:46)
[2020-11-13] MEDS: ASCORBIC ACID 500 MG TAB PO SCH (08:46)
[2020-11-13] MEDS: AMLODIPINE 2.5 MG TAB PO SCH (08:47)
[2020-11-13] MEDS: DOCUSATE NA 100MG/10ML UDCUP NG SCH (08:47)
[2020-11-13] MEDS: SENNOSIDES 8.6 MG TABLET NG SCH (08:47)
[2020-11-13] MEDS: **HM**(Cyclosporine (Restasis) 1 EACH) OP SCH (08:48)
[2020-11-13] MEDS ORDERED: KAYEXALATE 15GM/60ML PO SCH (09:15)
[2020-11-13] MEDS ORDERED: INSULIN HUMULIN R 100 UNIT/ML 3ML SQ SCH (09:15)
[2020-11-13] MEDS ORDERED: VANCOMYCIN PROTOCOL PER PHARMACY IV SCH (09:15)
[2020-11-13] MEDS ORDERED: CACL 1GM SYG IVP SCH (09:15)
[2020-11-13] MEDS: BRIMONID TART OP SCH ×2 (09:20→21:00)
[2020-11-13] MEDS: TIMOLOL MALEATE 0.5% 5 ML BOTTLE OP SCH (09:20)
[2020-11-13] MEDS: BRINZOLAMIDE OP SCH ×2 (09:20→21:00)
[2020-11-13] MEDS ORDERED: DEXTROSE 50%-WATER 50 ML DISP.SYRIN IV SCH (10:30)
[2020-11-13] MEDS: FUROSEMIDE 40MG VIAL IV SCH (12:50)
[2020-11-13] MEDS: POLYETHYLENE GLYCOL 3350 17 GM POWD.PACK NG SCH (12:50)
[2020-11-13] MEDS: MIDODRINE HCL 5 MG TABLET PO SCH ×2 (13:19→21:12)
[2020-11-13 16:08] LABS: CREATININE 2.7 mg/dL (0.5-1.5); POTASSIUM 5.8 mmol/L (3.5-5.1)
[2020-11-13] MEDS: LATANOPROST 2.5 ML DROPS OP SCH (21:00)
[2020-11-13] MEDS: INSULIN GLARGINE 100 UNITS/ML 10 ML VIAL SQ SCH (21:18)
[2020-11-13] MEDS: LINEZOLID 600 MG/ISO-OSM 300 ML IV SCH (21:20)
[2020-11-13] MEDS: NOREPINEPHRIN 4MG/NS 250ML 250 ML IV SCH (22:48)
[2020-11-14] VITALS (91 sets, daily range): BP systolic 73–154; BP diastolic 36–88
[2020-11-14] MEDS: FUROSEMIDE 40MG VIAL IV SCH ×2 (00:01→13:17)
[2020-11-14] MEDS: ALBUTEROL 0.083% 2.5 MG/3 ML INH IH SCH (01:44)
[2020-11-14] MEDS: SODIUM CHLORIDE 3% FOR INHALATION 4 ML/AMP VIAL.NEB IH SCH (01:44)
[2020-11-14] MEDS: PROPOFOL 1000 MG/100 ML 100 ML IV SCH ×5 (02:06→20:17)
[2020-11-14 03:37] LABS: ABG BASE EXCESS -10.8 mmol/L (-2.0-3.0); ABG HCO3 15.5 mmol/L (21.0-28.0); ABG PCO2 36 mmHg (35-48)
[2020-11-14] MEDS ORDERED: FENTANYL 2500MCG+NS 250ML 250 ML IV ONE (04:30)
[2020-11-14] MEDS: VECURONIUM 10MG/10ML 50 MG in 0.9%NACL 50ML 50 ML IV SCH ×2 (04:43→13:21)
[2020-11-14] MEDS ORDERED: FENTANYL CITRATE PF 0.05 MG/ML 2,500 MCG in 0.9%NACL 100ML 250 ML IVPB SCH (04:45)
[2020-11-14 04:48] LABS: % IRON SATURATION 22.9 % (30-44)
[2020-11-14 04:56] LABS: ALBUMIN 1.6 g/dL (3.5-5.0); BILIRUBIN,TOTAL 0.5 mg/dL (0.2-1.0); CREATININE 2.4 mg/dL (0.5-1.5); POTASSIUM 4.5 mmol/L (3.5-5.1); TOTAL PROTEIN, SERUM 5.1 g/dL (6.0-8.3)
[2020-11-14] MEDS: SENNOSIDES 8.6 MG TABLET NG SCH (09:00)
[2020-11-14] MEDS: DOCUSATE NA 100MG/10ML UDCUP NG SCH (09:00)
[2020-11-14] MEDS ORDERED: SODIUM BICARB 50MEQ 50ML VIAL IV SCH (10:00)
[2020-11-14] MEDS: SUCRALFATE 1 GM TABLET NG SCH ×4 (10:07→22:35)
[2020-11-14] MEDS: ZOSYN 3.375GM+NS 50ML 50 ML IV SCH ×3 (10:07→15:27)
[2020-11-14] MEDS: TAMSULOSIN HCL 0.4 MG CAP.ER.24H NG SCH (10:08)
[2020-11-14] MEDS: ZINC SULFATE 220 CAPSULE PO SCH (10:08)
[2020-11-14] MEDS: ASCORBIC ACID 500 MG TAB PO SCH (10:08)
[2020-11-14] MEDS: ASPIRIN 81MG CHEW TAB NG SCH (10:08)
[2020-11-14] MEDS: PANTOPRAZOLE 40 MG/VIAL IVP SCH ×2 (10:08→22:35)
[2020-11-14] MEDS: MIDODRINE HCL 5 MG TABLET PO SCH ×3 (10:08→22:35)
[2020-11-14] MEDS: DEXAMETHASONE SOD PHOSPHATE 4 MG/ML 1ML VIAL IVP SCH ×2 (10:09→22:35)
[2020-11-14] MEDS: TIMOLOL MALEATE 0.5% 5 ML BOTTLE OP SCH (10:12)
[2020-11-14] MEDS: BRINZOLAMIDE OP SCH ×2 (10:17→21:00)
[2020-11-14] MEDS: BRIMONID TART OP SCH ×2 (10:17→21:00)
[2020-11-14] MEDS: INSULIN HUMULIN R 100 UNIT/ML 3ML SQ SCH ×5 (10:21→22:39)
[2020-11-14] MEDS: LINEZOLID 600 MG/ISO-OSM 300 ML IV SCH ×2 (10:26→22:36)
[2020-11-14] MEDS: **HM**(Cyclosporine (Restasis) 1 EACH) OP SCH (10:26)
[2020-11-14] MEDS: POLYETHYLENE GLYCOL 3350 17 GM POWD.PACK NG SCH (10:26)
[2020-11-14] MEDS ORDERED: COMPOUND IV MISC 1 EACH IVSOLN MISC PRN (12:45)
[2020-11-14 12:49] LABS: ABG BASE EXCESS -6.7 mmol/L (-2.0-3.0); ABG OXYGEN SATURATION 97.6 % (95.0-99.0); ABG PCO2 39 mmHg (35-48)
[2020-11-14] MEDS: IRON SUCROSE COMPLEX 100 MG in 0.9%NACL 50ML 50 ML IV SCH (13:18)
[2020-11-14] MEDS: DEXMEDETOMIDINE HCL 400 MCG in 0.9%NACL 100ML 100 ML IV SCH (13:20)
[2020-11-14] MEDS ORDERED: PHARMACY COMMUNICATION MISC SCH (20:00)
[2020-11-14] MEDS ORDERED: COMPOUND IV REFRIGERATED 1 EACH IVSOLN MISC PRN (20:30)
[2020-11-14] MEDS: LATANOPROST 2.5 ML DROPS OP SCH (21:00)
[2020-11-14] MEDS ORDERED: INSULIN GLARGINE 100 UNITS/ML 10 ML VIAL SQ SCH (21:00)
[2020-11-14] MEDS: SODIUM BICARB IV SCH (22:36)
[2020-11-14] MEDS: WATER FOR INJECTION STERILE IV SCH (22:36)
[2020-11-15] VITALS (92 sets, daily range): BP systolic 66–135; BP diastolic 39–80
[2020-11-15] MEDS: FUROSEMIDE 40MG VIAL IV SCH ×2 (00:28→11:00)
[2020-11-15] MEDS: ZOSYN 3.375GM+NS 50ML 50 ML IV SCH ×3 (00:28→15:11)
[2020-11-15] MEDS: PROPOFOL 1000 MG/100 ML 100 ML IV SCH ×7 (00:29→23:43)
[2020-11-15] MEDS: VECURONIUM 10MG/10ML 50 MG in 0.9%NACL 50ML 50 ML IV SCH (03:25)
[2020-11-15 03:53] LABS: ABG HCO3 18.3 mmol/L (21.0-28.0); ABG OXYGEN SATURATION 86.2 % (95.0-99.0); ABG PCO2 33 mmHg (35-48)
[2020-11-15] MEDS ORDERED: FENTANYL 2500MCG+NS 250ML 250 ML IV ONE (05:03)
[2020-11-15 05:36] LABS: BASOPHILS % (AUTO) 0.2 % (0.0-5.0); EOSINOPHILS % (AUTO) 0.3 % (0.0-8.0); LYMPHOCYTES % (AUTO) 0.7 % (21.0-51.0); MEAN CORPUSCULAR HEMOGLOBIN 29.5 pg (27.0-33.0); MEAN CORPUSCULAR HGB CONC 32.1 g/dL (32.0-36.0); MEAN CORPUSCULAR VOLUME 91.8 fL (79-99); MONOCYTES % (AUTO) 3.3 % (3.0-13.0); NEUTROPHILS % (AUTO) 91.7 % (40.0-77.0); NUCLEATED RED BLOOD CELLS 0.6 % (0.0-0.19); PLATELET COUNT (AUTO) 115 K/uL (130-400); RED BLOOD CELL COUNT(AUTO) 3.05 MIL/uL (4.50-6.20); RED CELL DISTRIBUTION WIDTH 16.7 % (11.0-15.5); WHITE BLOOD COUNT (AUTO) 26.7 K/uL (4.8-10.8)
[2020-11-15 05:57] LABS: ALBUMIN 1.5 g/dL (3.5-5.0); BILIRUBIN,TOTAL 0.5 mg/dL (0.2-1.0); CREATININE 2.1 mg/dL (0.5-1.5); CRP QUANTITATIVE 98.6 mg/L (0.00-9.0); POTASSIUM 3.8 mmol/L (3.5-5.1); TOTAL PROTEIN, SERUM 4.6 g/dL (6.0-8.3)
[2020-11-15] MEDS: SENNOSIDES 8.6 MG TABLET NG SCH (08:20)
[2020-11-15] MEDS: DOCUSATE NA 100MG/10ML UDCUP NG SCH (08:20)
[2020-11-15] MEDS: POLYETHYLENE GLYCOL 3350 17 GM POWD.PACK NG SCH (08:21)
[2020-11-15] MEDS: LINEZOLID 600 MG/ISO-OSM 300 ML IV SCH ×2 (08:36→22:20)
[2020-11-15] MEDS: PANTOPRAZOLE 40 MG/VIAL IVP SCH ×2 (08:37→22:19)
[2020-11-15] MEDS: SUCRALFATE 1 GM TABLET NG SCH ×4 (08:37→22:19)
[2020-11-15] MEDS: DEXAMETHASONE SOD PHOSPHATE 4 MG/ML 1ML VIAL IVP SCH ×2 (08:37→22:19)
[2020-11-15] MEDS: TAMSULOSIN HCL 0.4 MG CAP.ER.24H NG SCH (08:37)
[2020-11-15] MEDS: ZINC SULFATE 220 CAPSULE PO SCH (08:37)
[2020-11-15] MEDS: ASCORBIC ACID 500 MG TAB PO SCH (08:37)
[2020-11-15] MEDS: ASPIRIN 81MG CHEW TAB NG SCH (08:37)
[2020-11-15] MEDS: MIDODRINE HCL 5 MG TABLET PO SCH ×3 (08:37→22:19)
[2020-11-15] MEDS ORDERED: INSULIN GLARGINE 100 UNITS/ML 10 ML VIAL SQ SCH (09:00)
[2020-11-15] MEDS: IRON SUCROSE COMPLEX 100 MG in 0.9%NACL 50ML 50 ML IV SCH (09:12)
[2020-11-15] MEDS: **HM**(Cyclosporine (Restasis) 1 EACH) OP SCH (09:13)
[2020-11-15] MEDS: BRIMONID TART OP SCH ×2 (09:13→21:00)
[2020-11-15] MEDS: BRINZOLAMIDE OP SCH ×2 (09:13→21:00)
[2020-11-15] MEDS: TIMOLOL MALEATE 0.5% 5 ML BOTTLE OP SCH (09:13)
[2020-11-15] MEDS: INSULIN REGULAR, HUMAN 3ML 100 UNIT in 0.9%NACL 100ML 99 ML IV PRN ×2 (09:15)
[2020-11-15] MEDS: NOREPINEPHRIN 4MG/NS 250ML 250 ML IV SCH (10:56)
[2020-11-15] MEDS: ALBUTEROL 0.083% 2.5 MG/3 ML INH IH SCH ×2 (11:55→18:22)
[2020-11-15] MEDS: SODIUM CHLORIDE 3% FOR INHALATION 4 ML/AMP VIAL.NEB IH SCH ×2 (11:56→18:23)
[2020-11-15] MEDS: SODIUM BICARB IV SCH (15:05)
[2020-11-15] MEDS: WATER FOR INJECTION STERILE IV SCH (15:05)
[2020-11-15] MEDS ORDERED: NOREPINEPHRINE BITARTRATE 16 MG in 0.9% NACL 250ML 250 ML IV SCH (19:45)
[2020-11-15] MEDS ORDERED: FENTANYL 2500MCG+NS 250ML 250 ML IV SCH (19:45)
[2020-11-15] MEDS: LATANOPROST 2.5 ML DROPS OP SCH (21:00)
[2020-11-16] VITALS (88 sets, daily range): BP systolic 45–162; BP diastolic 27–97
[2020-11-16] MEDS: FUROSEMIDE 40MG VIAL IV SCH (00:49)
[2020-11-16] MEDS: ZOSYN 3.375GM+NS 50ML 50 ML IV SCH ×3 (00:49→14:16)
[2020-11-16] MEDS: ALBUTEROL 0.083% 2.5 MG/3 ML INH IH SCH ×3 (01:09→12:00)
[2020-11-16] MEDS: SODIUM CHLORIDE 3% FOR INHALATION 4 ML/AMP VIAL.NEB IH SCH ×5 (01:09→23:52)
[2020-11-16] MEDS ORDERED: 0.9% NACL 250ML 250 ML IV ONE (03:25)
[2020-11-16] MEDS ORDERED: NOREPINEPHRINE BITARTRATE 1 MG/1 ML ML IV ONE (03:25)
[2020-11-16] MEDS: PROPOFOL 1000 MG/100 ML 100 ML IV SCH (04:07)
[2020-11-16 04:19] LABS: BASOPHILS % (AUTO) 0.3 % (0.0-5.0); EOSINOPHILS % (AUTO) 0.1 % (0.0-8.0); HEMATOCRIT 29.3 % (42-54); LYMPHOCYTES % (AUTO) 0.3 % (21.0-51.0); MEAN CORPUSCULAR HEMOGLOBIN 30.1 pg (27.0-33.0); MEAN CORPUSCULAR HGB CONC 33.1 g/dL (32.0-36.0); MONOCYTES % (AUTO) 4.9 % (3.0-13.0); NEUTROPHILS % (AUTO) 90.1 % (40.0-77.0); NUCLEATED RED BLOOD CELLS 3.1 % (0.0-0.19); PLATELET COUNT (AUTO) 141 K/uL (130-400); RED BLOOD CELL COUNT(AUTO) 3.22 MIL/uL (4.50-6.20); RED CELL DISTRIBUTION WIDTH 17.2 % (11.0-15.5)
[2020-11-16 04:22] LABS: WHITE BLOOD COUNT (AUTO) 34.3 K/uL (4.8-10.8)
[2020-11-16 04:28] LABS: ABG BASE EXCESS -2.8 mmol/L (-2.0-3.0); ABG HCO3 21.9 mmol/L (21.0-28.0); ABG OXYGEN SATURATION 92.7 % (95.0-99.0); ABG PCO2 38 mmHg (35-48)
[2020-11-16 04:42] LABS: BAND NEUTROPHILS % (MANUAL) 15 % (0-2); LYMPHOCYTES % (MANUAL) 8 % (22-44); MAN.DIFF COMMENT-IMPRESSION MANUAL DIFFERENTIAL; MONOCYTES % (MANUAL) 4 % (2-9); SEGMENTED NEUTROPHILS % 73 % (40-70)
[2020-11-16 04:43] LABS: PLATELET MORPHOLOGY COMMENT ADEQUATE
[2020-11-16 04:51] LABS: ALBUMIN 1.5 g/dL (3.5-5.0); BILIRUBIN,TOTAL 0.5 mg/dL (0.2-1.0); CREATININE 2.3 mg/dL (0.5-1.5); CRP QUANTITATIVE 107.7 mg/L (0.00-9.0); POTASSIUM 3.7 mmol/L (3.5-5.1); TOTAL PROTEIN, SERUM 5.2 g/dL (6.0-8.3)
[2020-11-16] MEDS ORDERED: NOREPINEPHRIN 4MG/NS 250ML 250 ML IV SCH (07:15)
[2020-11-16] MEDS: SUCRALFATE 1 GM TABLET NG SCH ×4 (07:48→21:20)
[2020-11-16] MEDS: PANTOPRAZOLE 40 MG/VIAL IVP SCH ×2 (07:49→21:19)
[2020-11-16] MEDS: ZINC SULFATE 220 CAPSULE PO SCH (07:49)
[2020-11-16] MEDS: ASPIRIN 81MG CHEW TAB NG SCH (07:49)
[2020-11-16] MEDS: MIDODRINE HCL 5 MG TABLET PO SCH ×3 (07:49→21:19)
[2020-11-16] MEDS: DEXAMETHASONE SOD PHOSPHATE 4 MG/ML 1ML VIAL IVP SCH ×2 (07:50→21:19)
[2020-11-16] MEDS: TAMSULOSIN HCL 0.4 MG CAP.ER.24H NG SCH (07:50)
[2020-11-16] MEDS: ASCORBIC ACID 500 MG TAB PO SCH (07:51)
[2020-11-16] MEDS: IRON SUCROSE COMPLEX 100 MG in 0.9%NACL 50ML 50 ML IV SCH (07:53)
[2020-11-16] MEDS: LINEZOLID 600 MG/ISO-OSM 300 ML IV SCH ×2 (07:53→21:20)
[2020-11-16] MEDS: SENNOSIDES 8.6 MG TABLET NG SCH (08:25)
[2020-11-16] MEDS: DOCUSATE NA 100MG/10ML UDCUP NG SCH (08:25)
[2020-11-16] MEDS: **HM**(Cyclosporine (Restasis) 1 EACH) OP SCH (09:00)
[2020-11-16] MEDS: TIMOLOL MALEATE 0.5% 5 ML BOTTLE OP SCH (09:14)
[2020-11-16] MEDS: BRIMONID TART OP SCH ×2 (09:15→21:00)
[2020-11-16] MEDS: BRINZOLAMIDE OP SCH ×2 (09:15→21:00)
[2020-11-16] MEDS: POLYETHYLENE GLYCOL 3350 17 GM POWD.PACK NG SCH (11:41)
[2020-11-16] MEDS: WATER FOR INJECTION STERILE IV SCH (12:40)
[2020-11-16] MEDS: SODIUM BICARB IV SCH (12:40)
[2020-11-16] MEDS ORDERED: PHARMACY COMMUNICATION MISC SCH (14:00)
[2020-11-16] MEDS ORDERED: PHENYLEPHRINE 100 MG/NS 250ML IV SCH ×2 (14:45)
[2020-11-16] MEDS: LATANOPROST 2.5 ML DROPS OP SCH (21:00)
[2020-11-17] VITALS (89 sets, daily range): BP systolic 97–146; BP diastolic 44–80
[2020-11-17] MEDS: ZOSYN 3.375GM+NS 50ML 50 ML IV SCH ×3 (00:33→15:47)
[2020-11-17] MEDS: DEXMEDETOMIDINE HCL 400 MCG in 0.9%NACL 100ML 100 ML IV SCH (00:36)
[2020-11-17 04:08] LABS: ABG BASE EXCESS -1.6 mmol/L (-2.0-3.0); ABG HCO3 22.6 mmol/L (21.0-28.0); ABG OXYGEN SATURATION 98.2 % (95.0-99.0); ABG PCO2 37 mmHg (35-48)
[2020-11-17 04:40] LABS: BASOPHILS % (AUTO) 0.3 % (0.0-5.0); EOSINOPHILS % (AUTO) 0.4 % (0.0-8.0); HEMATOCRIT 28.2 % (42-54); LYMPHOCYTES % (AUTO) 0.9 % (21.0-51.0); MEAN CORPUSCULAR HEMOGLOBIN 29.8 pg (27.0-33.0); MEAN CORPUSCULAR HGB CONC 32.6 g/dL (32.0-36.0); MEAN CORPUSCULAR VOLUME 91.3 fL (79-99); MONOCYTES % (AUTO) 3.5 % (3.0-13.0); NEUTROPHILS % (AUTO) 90.9 % (40.0-77.0); NUCLEATED RED BLOOD CELLS 0.8 % (0.0-0.19); PLATELET COUNT (AUTO) 110 K/uL (130-400); RED BLOOD CELL COUNT(AUTO) 3.09 MIL/uL (4.50-6.20); RED CELL DISTRIBUTION WIDTH 17.6 % (11.0-15.5); WHITE BLOOD COUNT (AUTO) 29.1 K/uL (4.8-10.8)
[2020-11-17 05:00] LABS: ALBUMIN 1.4 g/dL (3.5-5.0); BILIRUBIN,TOTAL 0.6 mg/dL (0.2-1.0); CREATININE 2.7 mg/dL (0.5-1.5); MAGNESIUM 2.1 mg/dL (1.80-2.40); PHOSPHORUS 8.7 mg/dL (2.5-4.9)
[2020-11-17 05:20] LABS: CRP QUANTITATIVE 204.1 mg/L (0.00-9.0)
[2020-11-17] MEDS: SODIUM CHLORIDE 3% FOR INHALATION 4 ML/AMP VIAL.NEB IH SCH ×3 (06:00→18:37)
[2020-11-17] MEDS: PANTOPRAZOLE 40 MG/VIAL IVP SCH ×2 (07:55→21:47)
[2020-11-17] MEDS: MIDODRINE HCL 5 MG TABLET PO SCH ×3 (07:55→21:48)
[2020-11-17] MEDS: SUCRALFATE 1 GM TABLET NG SCH ×4 (07:55→21:48)
[2020-11-17] MEDS: IRON SUCROSE COMPLEX 100 MG in 0.9%NACL 50ML 50 ML IV SCH (07:56)
[2020-11-17] MEDS: DEXAMETHASONE SOD PHOSPHATE 4 MG/ML 1ML VIAL IVP SCH ×2 (07:56→21:47)
[2020-11-17] MEDS: ASPIRIN 81MG CHEW TAB NG SCH (07:56)
[2020-11-17] MEDS: ASCORBIC ACID 500 MG TAB PO SCH (07:56)
[2020-11-17] MEDS: ZINC SULFATE 220 CAPSULE PO SCH (07:56)
[2020-11-17] MEDS: LINEZOLID 600 MG/ISO-OSM 300 ML IV SCH ×2 (07:57→21:47)
[2020-11-17] MEDS: TAMSULOSIN HCL 0.4 MG CAP.ER.24H NG SCH (07:57)
[2020-11-17] MEDS: SENNOSIDES 8.6 MG TABLET NG SCH (07:58)
[2020-11-17] MEDS: **HM**(Cyclosporine (Restasis) 1 EACH) OP SCH (07:58)
[2020-11-17] MEDS: DOCUSATE NA 100MG/10ML UDCUP NG SCH (07:58)
[2020-11-17] MEDS: TIMOLOL MALEATE 0.5% 5 ML BOTTLE OP SCH (09:36)
[2020-11-17] MEDS: BRINZOLAMIDE OP SCH ×2 (09:37→21:00)
[2020-11-17] MEDS: BRIMONID TART OP SCH ×2 (09:37→21:00)
[2020-11-17] MEDS: LATANOPROST 2.5 ML DROPS OP SCH (21:00)
[2020-11-18] VITALS (90 sets, daily range): BP systolic 100–142; BP diastolic 41–73
[2020-11-18] MEDS: ZOSYN 3.375GM+NS 50ML 50 ML IV SCH ×2 (00:13→10:35)
[2020-11-18] MEDS: SODIUM CHLORIDE 3% FOR INHALATION 4 ML/AMP VIAL.NEB IH SCH (01:24)
[2020-11-18 03:33] LABS: ABG BASE EXCESS -4.7 mmol/L (-2.0-3.0); ABG HCO3 18.8 mmol/L (21.0-28.0); ABG OXYGEN SATURATION 94.9 % (95.0-99.0); ABG PCO2 31 mmHg (35-48)
[2020-11-18 05:00] LABS: BASOPHILS % (AUTO) 0.1 % (0.0-5.0); EOSINOPHILS % (AUTO) 0.9 % (0.0-8.0); HEMATOCRIT 27.6 % (42-54); LYMPHOCYTES % (AUTO) 0.8 % (21.0-51.0); MEAN CORPUSCULAR HEMOGLOBIN 29.7 pg (27.0-33.0); MEAN CORPUSCULAR HGB CONC 32.2 g/dL (32.0-36.0); MONOCYTES % (AUTO) 2.3 % (3.0-13.0); NEUTROPHILS % (AUTO) 94.3 % (40.0-77.0); NUCLEATED RED BLOOD CELLS 0.2 % (0.0-0.19); PLATELET COUNT (AUTO) 81 K/uL (130-400); RED CELL DISTRIBUTION WIDTH 17.9 % (11.0-15.5); WHITE BLOOD COUNT (AUTO) 21.1 K/uL (4.8-10.8)
[2020-11-18 05:17] LABS: ALBUMIN 1.3 g/dL (3.5-5.0); BILIRUBIN,TOTAL 0.6 mg/dL (0.2-1.0); CREATININE 2.7 mg/dL (0.5-1.5); CRP QUANTITATIVE 157.1 mg/L (0.00-9.0); POTASSIUM 3.9 mmol/L (3.5-5.1); TOTAL PROTEIN, SERUM 4.9 g/dL (6.0-8.3)
[2020-11-18] MEDS: **HM**(Cyclosporine (Restasis) 1 EACH) OP SCH (09:00)
[2020-11-18] MEDS: TAMSULOSIN HCL 0.4 MG CAP.ER.24H NG SCH (10:25)
[2020-11-18] MEDS: DEXAMETHASONE SOD PHOSPHATE 4 MG/ML 1ML VIAL IVP SCH ×2 (10:26→21:30)
[2020-11-18] MEDS: ASPIRIN 81MG CHEW TAB NG SCH (10:27)
[2020-11-18] MEDS: SUCRALFATE 1 GM TABLET NG SCH ×4 (10:27→21:30)
[2020-11-18] MEDS: PANTOPRAZOLE 40 MG/VIAL IVP SCH ×2 (10:27→21:42)
[2020-11-18] MEDS: ZINC SULFATE 220 CAPSULE PO SCH (10:29)
[2020-11-18] MEDS: ASCORBIC ACID 500 MG TAB PO SCH (10:29)
[2020-11-18] MEDS: MIDODRINE HCL 5 MG TABLET PO SCH ×3 (10:34→21:30)
[2020-11-18] MEDS: TIMOLOL MALEATE 0.5% 5 ML BOTTLE OP SCH (10:36)
[2020-11-18] MEDS: IRON SUCROSE COMPLEX 100 MG in 0.9%NACL 50ML 50 ML IV SCH (10:41)
[2020-11-18] MEDS: BRINZOLAMIDE OP SCH ×2 (10:45→21:00)
[2020-11-18] MEDS: BRIMONID TART OP SCH ×2 (10:45→21:00)
[2020-11-18] MEDS ORDERED: INSULIN HUMULIN R 100 UNIT/ML 3ML SQ SCH (11:30)
[2020-11-18] MEDS: LINEZOLID 600 MG/ISO-OSM 300 ML IV SCH ×2 (12:03→21:30)
[2020-11-18] MEDS: INSULIN REGULAR, HUMAN 3ML 100 UNIT in 0.9%NACL 100ML 99 ML IV PRN ×4 (12:09→18:04)
[2020-11-18] MEDS: LATANOPROST 2.5 ML DROPS OP SCH (21:00)
[2020-11-19] VITALS (83 sets, daily range): BP systolic 86–163; BP diastolic 48–91
[2020-11-19 03:24] LABS: ABG BASE EXCESS -4.9 mmol/L (-2.0-3.0); ABG HCO3 19.2 mmol/L (21.0-28.0); ABG OXYGEN SATURATION 94.5 % (95.0-99.0); ABG PCO2 33 mmHg (35-48)
[2020-11-19 05:30] LABS: BASOPHILS % (AUTO) 0.2 % (0.0-5.0); EOSINOPHILS % (AUTO) 0.7 % (0.0-8.0); HEMATOCRIT 26.4 % (42-54); LYMPHOCYTES % (AUTO) 0.6 % (21.0-51.0); MEAN CORPUSCULAR HEMOGLOBIN 29.9 pg (27.0-33.0); MEAN CORPUSCULAR HGB CONC 32.6 g/dL (32.0-36.0); MEAN CORPUSCULAR VOLUME 91.7 fL (79-99); MONOCYTES % (AUTO) 1.7 % (3.0-13.0); NEUTROPHILS % (AUTO) 95.2 % (40.0-77.0); NUCLEATED RED BLOOD CELLS 0.6 % (0.0-0.19); PLATELET COUNT (AUTO) 85 K/uL (130-400); RED BLOOD CELL COUNT(AUTO) 2.88 MIL/uL (4.50-6.20); RED CELL DISTRIBUTION WIDTH 17.8 % (11.0-15.5); WHITE BLOOD COUNT (AUTO) 18.5 K/uL (4.8-10.8)
[2020-11-19 06:06] LABS: ALANINE AMINOTRANSFERASE 64 U/L (12-78); ALBUMIN 1.3 g/dL (3.5-5.0); AMMONIA 26 umol/L (11-32); ASPARTATE AMINOTRANSFERASE 44 U/L (10-37); BILIRUBIN,TOTAL 0.4 mg/dL (0.2-1.0); CARBON DIOXIDE 21 mmol/L (21-32); CHLORIDE 99 mmol/L (101-111); CREATININE 2.7 mg/dL (0.5-1.5); GLOMERULAR FILTR. RATE CALC 24 mL/min (>60); POTASSIUM 3.8 mmol/L (3.5-5.1); SODIUM SERUM 141 mmol/L (136-145); TOTAL PROTEIN, SERUM 4.2 g/dL (6.0-8.3)
[2020-11-19 06:15] LABS: GLUCOSE,RANDOM 208 mg/dL (70-105)
[2020-11-19 06:19] LABS: UREA NITROGEN, BLOOD 140 mg/dL (7-18)
[2020-11-19] MEDS: SODIUM CHLORIDE 3% FOR INHALATION 4 ML/AMP VIAL.NEB IH SCH ×3 (06:35→16:00)
[2020-11-19] MEDS: **HM**(Cyclosporine (Restasis) 1 EACH) OP SCH (09:00)
[2020-11-19] MEDS: SUCRALFATE 1 GM TABLET NG SCH ×4 (09:33→20:42)
[2020-11-19] MEDS: TAMSULOSIN HCL 0.4 MG CAP.ER.24H NG SCH (09:33)
[2020-11-19] MEDS: ASCORBIC ACID 500 MG TAB PO SCH (09:33)
[2020-11-19] MEDS: ZINC SULFATE 220 CAPSULE PO SCH (09:33)
[2020-11-19] MEDS: DEXAMETHASONE SOD PHOSPHATE 4 MG/ML 1ML VIAL IVP SCH ×2 (09:33→20:42)
[2020-11-19] MEDS: MIDODRINE HCL 5 MG TABLET PO SCH ×3 (09:33→20:42)
[2020-11-19] MEDS: PANTOPRAZOLE 40 MG/VIAL IVP SCH ×2 (09:34→20:41)
[2020-11-19] MEDS: LINEZOLID 600 MG/ISO-OSM 300 ML IV SCH ×2 (09:34→20:41)
[2020-11-19] MEDS: IRON SUCROSE COMPLEX 100 MG in 0.9%NACL 50ML 50 ML IV SCH (09:35)
[2020-11-19] MEDS: ASPIRIN 81MG CHEW TAB NG SCH (09:35)
[2020-11-19] MEDS: TIMOLOL MALEATE 0.5% 5 ML BOTTLE OP SCH (09:36)
[2020-11-19] MEDS: BRIMONID TART OP SCH ×2 (09:38→21:00)
[2020-11-19] MEDS: BRINZOLAMIDE OP SCH ×2 (09:38→21:00)
[2020-11-19] MEDS: INSULIN REGULAR, HUMAN 3ML 100 UNIT in 0.9%NACL 100ML 99 ML IV PRN ×2 (18:19)
[2020-11-19] MEDS: LATANOPROST 2.5 ML DROPS OP SCH (20:43)
[2020-11-20] VITALS (81 sets, daily range): BP systolic 63–154; BP diastolic 23–82
[2020-11-20 04:51] LABS: BASOPHILS % (AUTO) 0.2 % (0.0-5.0); EOSINOPHILS % (AUTO) 0.7 % (0.0-8.0); HEMATOCRIT 27.4 % (42-54); LYMPHOCYTES % (AUTO) 0.4 % (21.0-51.0); MEAN CORPUSCULAR HEMOGLOBIN 30.2 pg (27.0-33.0); MEAN CORPUSCULAR HGB CONC 32.1 g/dL (32.0-36.0); MEAN CORPUSCULAR VOLUME 94.2 fL (79-99); MONOCYTES % (AUTO) 2.6 % (3.0-13.0); NEUTROPHILS % (AUTO) 95.3 % (40.0-77.0); NUCLEATED RED BLOOD CELLS 0.7 % (0.0-0.19); PLATELET COUNT (AUTO) 92 K/uL (130-400); RED BLOOD CELL COUNT(AUTO) 2.91 MIL/uL (4.50-6.20); RED CELL DISTRIBUTION WIDTH 18.6 % (11.0-15.5); WHITE BLOOD COUNT (AUTO) 16.5 K/uL (4.8-10.8)
[2020-11-20 05:16] LABS: ALBUMIN 1.4 g/dL (3.5-5.0); BILIRUBIN,TOTAL 0.3 mg/dL (0.2-1.0); CREATININE 2.6 mg/dL (0.5-1.5); POTASSIUM 3.3 mmol/L (3.5-5.1); TOTAL PROTEIN, SERUM 5.3 g/dL (6.0-8.3)
[2020-11-20 05:23] LABS: CRP QUANTITATIVE 225.6 mg/L (0.00-9.0)
[2020-11-20] MEDS: SUCRALFATE 1 GM TABLET NG SCH ×4 (05:53→20:10)
[2020-11-20] MEDS: SODIUM CHLORIDE 3% FOR INHALATION 4 ML/AMP VIAL.NEB IH SCH ×3 (06:00→12:00)
[2020-11-20] MEDS ORDERED: FENTANYL CITRATE PF 50 MCG/1 ML 2ML VIAL IVP PRN (07:45)
[2020-11-20] MEDS: IRON SUCROSE COMPLEX 100 MG in 0.9%NACL 50ML 50 ML IV SCH (07:58)
[2020-11-20] MEDS: LINEZOLID 600 MG/ISO-OSM 300 ML IV SCH ×2 (07:58→20:09)
[2020-11-20] MEDS: ASCORBIC ACID 500 MG TAB PO SCH (07:59)
[2020-11-20] MEDS: TAMSULOSIN HCL 0.4 MG CAP.ER.24H NG SCH (07:59)
[2020-11-20] MEDS: MIDODRINE HCL 5 MG TABLET PO SCH ×3 (07:59→20:10)
[2020-11-20] MEDS: DEXAMETHASONE SOD PHOSPHATE 4 MG/ML 1ML VIAL IVP SCH ×2 (07:59→20:10)
[2020-11-20] MEDS: PANTOPRAZOLE 40 MG/VIAL IVP SCH ×2 (07:59→20:10)
[2020-11-20] MEDS: ZINC SULFATE 220 CAPSULE PO SCH (08:00)
[2020-11-20] MEDS: TIMOLOL MALEATE 0.5% 5 ML BOTTLE OP SCH (08:00)
[2020-11-20] MEDS: ASPIRIN 81MG CHEW TAB NG SCH (08:00)
[2020-11-20] MEDS: BRIMONID TART OP SCH ×2 (08:02→20:15)
[2020-11-20] MEDS: BRINZOLAMIDE OP SCH ×2 (08:02→20:15)
[2020-11-20] MEDS: **HM**(Cyclosporine (Restasis) 1 EACH) OP SCH (08:02)
[2020-11-20 08:36] LABS: ABG HCO3 20.4 mmol/L (21.0-28.0); ABG OXYGEN SATURATION 87.9 % (95.0-99.0); ABG PCO2 39 mmHg (35-48)
[2020-11-20] MEDS: FENTANYL 2500MCG+NS 250ML 250 ML IV SCH (15:22)
[2020-11-20] MEDS: LATANOPROST 2.5 ML DROPS OP SCH (20:10)
[2020-11-21] VITALS (79 sets, daily range): BP systolic 91–150; BP diastolic 35–78
[2020-11-21] MEDS ORDERED: NOREPINEPHRIN 4MG/NS 250ML 250 ML IV SCH (00:45)
[2020-11-21] MEDS ORDERED: NOREPINEPHRIN 4MG/NS 250ML 250 ML IV ONE (00:49)
[2020-11-21 03:14] LABS: ABG BASE EXCESS -6.1 mmol/L (-2.0-3.0); ABG HCO3 19.7 mmol/L (21.0-28.0); ABG OXYGEN SATURATION 88.3 % (95.0-99.0); ABG PCO2 40 mmHg (35-48)
[2020-11-21 05:42] LABS: BASOPHILS % (AUTO) 0.2 % (0.0-5.0); HEMATOCRIT 25.4 % (42-54); LYMPHOCYTES % (AUTO) 1.1 % (21.0-51.0); MEAN CORPUSCULAR HEMOGLOBIN 29.7 pg (27.0-33.0); MEAN CORPUSCULAR HGB CONC 31.5 g/dL (32.0-36.0); MEAN CORPUSCULAR VOLUME 94.4 fL (79-99); MONOCYTES % (AUTO) 2.6 % (3.0-13.0); PLATELET COUNT (AUTO) 71 K/uL (130-400); RED BLOOD CELL COUNT(AUTO) 2.69 MIL/uL (4.50-6.20); RED CELL DISTRIBUTION WIDTH 18.8 % (11.0-15.5); WHITE BLOOD COUNT (AUTO) 10.4 K/uL (4.8-10.8)
[2020-11-21] MEDS: SUCRALFATE 1 GM TABLET NG SCH ×4 (06:11→20:48)
[2020-11-21 06:22] LABS: ALBUMIN 1.3 g/dL (3.5-5.0); BILIRUBIN,TOTAL 0.4 mg/dL (0.2-1.0); MAGNESIUM 2.7 mg/dL (1.80-2.40); POTASSIUM 3.7 mmol/L (3.5-5.1); TOTAL PROTEIN, SERUM 4.5 g/dL (6.0-8.3)
[2020-11-21 06:43] LABS: CRP QUANTITATIVE 225.8 mg/L (0.00-9.0)
[2020-11-21] MEDS ORDERED: PHENYLEPHRINE HCL 50 MG in 0.9% NACL 250ML 250 ML IV PRN (08:45)
[2020-11-21] MEDS: **HM**(Cyclosporine (Restasis) 1 EACH) OP SCH (09:00)
[2020-11-21] MEDS: DEXAMETHASONE SOD PHOSPHATE 4 MG/ML 1ML VIAL IVP SCH ×2 (09:33→20:47)
[2020-11-21] MEDS: LINEZOLID 600 MG/ISO-OSM 300 ML IV SCH ×2 (09:33→20:47)
[2020-11-21] MEDS: IRON SUCROSE COMPLEX 100 MG in 0.9%NACL 50ML 50 ML IV SCH (09:33)
[2020-11-21] MEDS: ASPIRIN 81MG CHEW TAB NG SCH (09:34)
[2020-11-21] MEDS: TAMSULOSIN HCL 0.4 MG CAP.ER.24H NG SCH (09:34)
[2020-11-21] MEDS: METOPROLOL TARTRATE 25 MG TAB NG SCH ×2 (09:34→20:47)
[2020-11-21] MEDS: PANTOPRAZOLE 40 MG/VIAL IVP SCH ×2 (09:34→20:47)
[2020-11-21] MEDS: BRIMONID TART OP SCH ×2 (09:35→20:48)
[2020-11-21] MEDS: BRINZOLAMIDE OP SCH ×2 (09:35→20:48)
[2020-11-21] MEDS: MIDODRINE HCL 5 MG TABLET PO SCH ×3 (09:35→20:47)
[2020-11-21] MEDS: ASCORBIC ACID 500 MG TAB PO SCH (09:35)
[2020-11-21] MEDS: TIMOLOL MALEATE 0.5% 5 ML BOTTLE OP SCH (09:35)
[2020-11-21] MEDS: ZINC SULFATE 220 CAPSULE PO SCH (09:35)
[2020-11-21] MEDS ORDERED: ALTEPLASE 2MG VIAL 2 MG/VIAL VIAL IVCATH SCH (10:30)
[2020-11-21] MEDS: FENTANYL 2500MCG+NS 250ML 250 ML IV SCH (11:23)
[2020-11-21] MEDS: LATANOPROST 2.5 ML DROPS OP SCH (20:47)
[2020-11-22] VITALS (63 sets, daily range): BP systolic 102–153; BP diastolic 37–68
[2020-11-22 04:56] LABS: BASOPHILS % (AUTO) 0.3 % (0.0-5.0); EOSINOPHILS % (AUTO) 21.2 % (0.0-8.0); HEMATOCRIT 23.6 % (42-54); LYMPHOCYTES % (AUTO) 0.9 % (21.0-51.0); MEAN CORPUSCULAR HEMOGLOBIN 29.7 pg (27.0-33.0); MEAN CORPUSCULAR HGB CONC 30.9 g/dL (32.0-36.0); MEAN CORPUSCULAR VOLUME 95.9 fL (79-99); MONOCYTES % (AUTO) 1.6 % (3.0-13.0); NEUTROPHILS % (AUTO) 74.2 % (40.0-77.0); NUCLEATED RED BLOOD CELLS 1.8 % (0.0-0.19); PLATELET COUNT (AUTO) 52 K/uL (130-400); RED BLOOD CELL COUNT(AUTO) 2.46 MIL/uL (4.50-6.20); RED CELL DISTRIBUTION WIDTH 18.6 % (11.0-15.5)
[2020-11-22 05:07] LABS: ABG BASE EXCESS -7.8 mmol/L (-2.0-3.0); ABG HCO3 18.2 mmol/L (21.0-28.0); ABG OXYGEN SATURATION 92.2 % (95.0-99.0); ABG PCO2 39 mmHg (35-48)
[2020-11-22 05:18] LABS: ALBUMIN 1.2 g/dL (3.5-5.0); BILIRUBIN,TOTAL 0.4 mg/dL (0.2-1.0); CREATININE 3.5 mg/dL (0.5-1.5); POTASSIUM 3.6 mmol/L (3.5-5.1); TOTAL PROTEIN, SERUM 4.8 g/dL (6.0-8.3)
[2020-11-22 05:41] LABS: CRP QUANTITATIVE 360.6 mg/L (0.00-9.0)
[2020-11-22] MEDS: SUCRALFATE 1 GM TABLET NG SCH ×4 (05:51→20:33)
[2020-11-22] MEDS: METOPROLOL TARTRATE 25 MG TAB NG SCH ×2 (08:40→20:33)
[2020-11-22] MEDS: DEXAMETHASONE SOD PHOSPHATE 4 MG/ML 1ML VIAL IVP SCH ×2 (08:40→20:33)
[2020-11-22] MEDS: ASCORBIC ACID 500 MG TAB PO SCH (08:40)
[2020-11-22] MEDS: ASPIRIN 81MG CHEW TAB NG SCH (08:40)
[2020-11-22] MEDS: ZINC SULFATE 220 CAPSULE PO SCH (08:40)
[2020-11-22] MEDS: MIDODRINE HCL 5 MG TABLET PO SCH ×3 (08:41→20:34)
[2020-11-22] MEDS: TAMSULOSIN HCL 0.4 MG CAP.ER.24H NG SCH (08:41)
[2020-11-22] MEDS: **HM**(Cyclosporine (Restasis) 1 EACH) OP SCH (08:43)
[2020-11-22] MEDS: BRINZOLAMIDE OP SCH ×2 (08:43→20:34)
[2020-11-22] MEDS: BRIMONID TART OP SCH ×2 (08:43→20:34)
[2020-11-22] MEDS: TIMOLOL MALEATE 0.5% 5 ML BOTTLE OP SCH (08:44)
[2020-11-22] MEDS: LINEZOLID 600 MG/ISO-OSM 300 ML IV SCH (08:48)
[2020-11-22] MEDS: PANTOPRAZOLE 40 MG/VIAL IVP SCH ×2 (08:51→20:28)
[2020-11-22] MEDS: IRON SUCROSE COMPLEX 100 MG in 0.9%NACL 50ML 50 ML IV SCH (09:16)
[2020-11-22] MEDS ORDERED: ALBUMIN (HUMAN) 25% 50 ML IV SCH (10:15)
[2020-11-22] MEDS ORDERED: SODIUM BICARB 50MEQ 50ML VIAL 50 ML ONE (12:00)
[2020-11-22] MEDS: FENTANYL 2500MCG+NS 250ML 250 ML IV SCH (12:08)
[2020-11-22] MEDS: SODIUM BICARB 50MEQ 50ML VIAL IV SCH ×2 (14:27→22:06)
[2020-11-22] MEDS: LATANOPROST 2.5 ML DROPS OP SCH (20:34)
[2020-11-23] VITALS (37 sets, daily range): BP systolic 72–125; BP diastolic 36–80
[2020-11-23 03:29] LABS: ABG BASE EXCESS -10.2 mmol/L (-2.0-3.0); ABG HCO3 14.9 mmol/L (21.0-28.0); ABG OXYGEN SATURATION 98.7 % (95.0-99.0); ABG PCO2 31 mmHg (35-48)
[2020-11-23 05:34] LABS: BASOPHILS % (AUTO) 0.2 % (0.0-5.0); MEAN CORPUSCULAR HEMOGLOBIN 29.3 pg (27.0-33.0); MEAN CORPUSCULAR HGB CONC 30.5 g/dL (32.0-36.0); MEAN CORPUSCULAR VOLUME 96.1 fL (79-99); NEUTROPHILS % (AUTO) 96.4 % (40.0-77.0); NUCLEATED RED BLOOD CELLS 1.8 % (0.0-0.19); PLATELET COUNT (AUTO) 37 K/uL (130-400); RED BLOOD CELL COUNT(AUTO) 2.29 MIL/uL (4.50-6.20); RED CELL DISTRIBUTION WIDTH 18.8 % (11.0-15.5)
[2020-11-23 05:55] LABS: ALBUMIN 1.1 g/dL (3.5-5.0); BILIRUBIN,TOTAL 0.5 mg/dL (0.2-1.0); CREATININE 4.1 mg/dL (0.5-1.5); TOTAL PROTEIN, SERUM 4.7 g/dL (6.0-8.3)
[2020-11-23] MEDS: SODIUM BICARB 50MEQ 50ML VIAL IV SCH (06:09)
[2020-11-23] MEDS: SUCRALFATE 1 GM TABLET NG SCH ×2 (06:10→11:06)
[2020-11-23 06:34] LABS: CRP QUANTITATIVE 306.8 mg/L (0.00-9.0)
[2020-11-23] MEDS ORDERED: SODIUM BICARB 50MEQ 50ML VIAL IV STA (08:45)
[2020-11-23] MEDS: TIMOLOL MALEATE 0.5% 5 ML BOTTLE OP SCH (09:00)
[2020-11-23] MEDS: BRIMONID TART OP SCH (09:00)
[2020-11-23] MEDS: DEXAMETHASONE SOD PHOSPHATE 4 MG/ML 1ML VIAL IVP SCH ×2 (09:00→11:06)
[2020-11-23] MEDS: METOPROLOL TARTRATE 25 MG TAB NG SCH (09:00)
[2020-11-23] MEDS: BRINZOLAMIDE OP SCH (09:00)
[2020-11-23] MEDS: TAMSULOSIN HCL 0.4 MG CAP.ER.24H NG SCH (09:00)
[2020-11-23] MEDS: PANTOPRAZOLE 40 MG/VIAL IVP SCH (09:00)
[2020-11-23] MEDS: MIDODRINE HCL 5 MG TABLET PO SCH (09:00)
[2020-11-23] MEDS: ZINC SULFATE 220 CAPSULE PO SCH (09:00)
[2020-11-23] MEDS: ASPIRIN 81MG CHEW TAB NG SCH (09:00)
[2020-11-23] MEDS: ASCORBIC ACID 500 MG TAB PO SCH (09:00)
[2020-11-23] MEDS: **HM**(Cyclosporine (Restasis) 1 EACH) OP SCH (09:00)
[2020-11-23] MEDS ORDERED: LORAZEPAM 1 MG TABLET PO PRN (12:15)
[2020-11-23] MEDS ORDERED: MORPHINE 20MG/ML SOLN 0.25ML PO PRN (12:15)
[2020-11-23] MEDS ORDERED: SCOPOLAMINE HYDROBROMIDE 1 EACH ADH..PATCH TD SCH (12:15)
[2020-11-23] MEDS ORDERED: GLYCOPYRROLATE 1 MG/5 ML SYRINGE IM PRN (12:15)
[2020-11-23] MEDS ORDERED: ACETAMINOPHEN 650 MG SUPPOSITORY RC PRN (12:15)
[2020-11-23] MEDS ORDERED: LORAZEPAM 2 MG/ML 1 ML VIAL IVP SCH (12:15)
[2020-11-23] MEDS ORDERED: MORPHINE 4 MG SYG IV SCH (12:15)
[2020-11-23] MEDS ORDERED: MORPHINE 2 MG SYG IVP PRN (12:15)
[2020-11-23] MEDS ORDERED: ARTIFICAL TEARS SOL 15 ML OU PRN (12:15)
[2020-11-23] MEDS ORDERED: ATROPINE SULFATE 5 ML DROPS PO PRN (12:15)
== END 2020-11-23 15:03 | disposition expired | DRG 870 ==
LOC: EDH 15:13 → EDHIP 18:25 → 4AH 10-30 17:09 → 2BH 11-04 19:30
PROVIDERS: ADMIT Internal Medicine; ATTEND Internal Medicine
PROC: XW13325 Transfusion of Convalescent Plasma (Nonautologous) into Peripheral Vein, Percutaneous Approach, New Technology Group 5 (ICD-10-PCS; 2020-10-30)
PROC: 5A0935A Assistance with Respiratory Ventilation, Less than 24 Consecutive Hours, High Flow/Velocity Cannula (ICD-10-PCS; 2020-11-03)
PROC: XW033E5 Introduction of Remdesivir Anti-infective into Peripheral Vein, Percutaneous Approach, New Technology Group 5 (ICD-10-PCS; 2020-11-03)
PROC: 0BH17EZ Insertion of Endotracheal Airway into Trachea, Via Natural or Artificial Opening (ICD-10-PCS; 2020-11-04)
PROC: 5A12012 Performance of Cardiac Output, Single, Manual (ICD-10-PCS; 2020-11-04)
PROC: 5A1955Z Respiratory Ventilation, Greater than 96 Consecutive Hours (ICD-10-PCS; principal; 2020-11-05)
PROC: 02HV33Z Insertion of Infusion Device into Superior Vena Cava, Percutaneous Approach (ICD-10-PCS; 2020-11-06)
PROC: B548ZZA Ultrasonography of Superior Vena Cava, Guidance (ICD-10-PCS; 2020-11-06)
PROC: 30233N1 Transfusion of Nonautologous Red Blood Cells into Peripheral Vein, Percutaneous Approach (ICD-10-PCS; 2020-11-12)
DX: A41.9 Sepsis, unspecified organism (principal); U07.1 COVID-19; J96.01 Acute respiratory failure with hypoxia; I21.A1 Myocardial infarction type 2; J12.82 Pneumonia due to coronavirus disease 2019; E43 Unspecified severe protein-calorie malnutrition; E87.1 Hypo-osmolality and hyponatremia; E87.2 Acidosis; J98.11 Atelectasis; D68.59 Other primary thrombophilia; D62 Acute posthemorrhagic anemia; N17.9 Acute kidney failure, unspecified; K92.2 Gastrointestinal hemorrhage, unspecified; G93.1 Anoxic brain damage, not elsewhere classified; G93.49 Other encephalopathy; E87.5 Hyperkalemia; E87.6 Hypokalemia; Z66 Do not resuscitate; R13.12 Dysphagia, oropharyngeal phase; I46.9 Cardiac arrest, cause unspecified; I49.3 Ventricular premature depolarization; I48.91 Unspecified atrial fibrillation; D69.6 Thrombocytopenia, unspecified; I95.9 Hypotension, unspecified; E78.5 Hyperlipidemia, unspecified; R54 Age-related physical debility; I25.10 Atherosclerotic heart disease of native coronary artery without angina pectoris; E11.65 Type 2 diabetes mellitus with hyperglycemia; E66.9 Obesity, unspecified; G83.9 Paralytic syndrome, unspecified; R94.4 Abnormal results of kidney function studies; I11.9 Hypertensive heart disease without heart failure; N40.0 Benign prostatic hyperplasia without lower urinary tract symptoms; E78.00 Pure hypercholesterolemia, unspecified; Z96.651 Presence of right artificial knee joint; Z83.3 Family history of diabetes mellitus; Z79.899 Other long term (current) drug therapy; Z93.1 Gastrostomy status; Z68.28 Body mass index [BMI] 28.0-28.9, adult
CPT/HCPCS: 31500; 36415; 36430; 36569; 36600; 71045; 71250; 80048; 80053; 80076; 81001; 82140; 82270; 82435; 82550; 82728; 82803; 82947; 82948; 83540; 83550; 83605; 83615; 83735; 83880; 84100; 84132; 84145; 84295; 84478; 84484; 85018; 85025; 85027; 85378; 85610; 85730; 86140; 86606; 86612; 86635; 86641; 86698; 86701; 86850; 86900; 86901; 86923; 86927; 87040; 87071; 87088; 87205; 87390; 87426; 87507; 87804; 87880; 92950; 93005; 93306; 93970; 94002; 94003; 94640; 94664; 99291; C9113; G0378; J0456; J0696; J1100; J1650; J1756; J1815; J1940; J2020; J2060; J2270; J2370; J2543; J2704; J2997; J3010; J3370; J3480; J3490; J7050; J7070; J7120; P9016